=== PATIENT | male | born 1955 | race Two or more races ===

== ENCOUNTER 2020-02-07 21:57 | Inpatient (IN) | payer OTHER ==
[~2020-02-07] VITALS: Ht 188 cm; Wt 88.5 kg
--- NOTE | 2020-02-07 22:10 | NUR ---
PT CAME TO THE ED C/O PAIN ON THE L KNEE. REDNESS NOTED ON THE SITE. PT AAOX4, RR EVEN AND UNLABORED ON RA W NAD NOTED. PT CONNECTED TO THE MONITOR AND POX. AWAITING FOR MD RODRIGUEZ
--- NOTE | 2020-02-07 22:41 | NUR ---
Jadiel osorio in ED - 02/07/20 at 2242 by STEPHANY +SWELLING NTOED. PT ENDORSES L CHARCOAL FOOT.
--- NOTE | 2020-02-07 22:42 | NUR ---
MARCO ANTONIO JORDAN AT BEDSIDE
--- NOTE | 2020-02-07 22:42 | NUR ---
SWELLING NOTED. PT ENDORSES L CHARCOT FOOT.
--- NOTE | 2020-02-07 22:45 | NUR ---
BLOOD COLLECTED AND SENT TO LAB
[2020-02-07] MEDS ORDERED: PIPERACILLIN /TAZOBACTAM 3.375 G VIAL IV ONE (22:47)
[2020-02-07] MEDS ORDERED: VANCOMYCIN 1 GM VIAL ONE (22:47)
[2020-02-07] MEDS ORDERED: VANCOMYCIN 1 GM in IV D5W 250 ML IV ONE (23:00)
[2020-02-07] MEDS ORDERED: PIPERACILLIN /TAZOBACTAM 3.375 G in IV D5W 50 ML IV ONE (23:00)
[2020-02-07] MEDS ORDERED: MORPHINE SULFATE INJ 4 MG/ML DISP.SYRIN ONE (23:04)
[2020-02-07] MEDS ORDERED: ONDANSETRON HCL/PF 4 MG/2 ML VIAL ONE (23:04)
[2020-02-07 23:09] LABS: BASOPHILS % (AUTO) 0.2 % (0.0-2.0); EOSINOPHILS % (AUTO) 0.3 % (0.0-6.0); HEMATOCRIT 37 % (39-51); HEMOGLOBIN 11.6 g/dL (13.5-17.5); LYMPHOCYTES # (AUTO) 0.8 /CMM (0.8-4.8); MEAN CORPUSCULAR HGB CONC 32 g/dl (31.0-36.0); MEAN CORPUSCULAR VOLUME 75 fL (80-96); MONOCYTES # (AUTO) 1.1 /CMM (0.1-1.30); MONOCYTES % (AUTO) 5.4 % (2.0-12.0); NEUTROPHILS # (AUTO) 18.8 /CMM (1.8-8.9); NEUTROPHILS % (AUTO) 90.1 % (43.0-81.0); PLATELET COUNT (AUTO) 390 /CMM (150-450); RED BLOOD CELL COUNT(AUTO) 4.84 MIL/uL (4.5-6.0); WHITE BLOOD COUNT (AUTO) 20.8 K/uL (4.3-11.0)
[2020-02-07 23:18] LABS: CALCIUM, SERUM 9.3 mg/dL (8.5-10.1); CARBON DIOXIDE 30 mmol/L (21-32); CHLORIDE 91 mmol/L (98-107); CREATININE 0.9 mg/dL (0.6-1.3); GLUCOSE 161 mg/dL (74-106); POTASSIUM 3.1 mmol/L (3.5-5.1); SODIUM SERUM 129 mmol/L (136-145); UREA NITROGEN, BLOOD 18 mg/dL (7-18)
[2020-02-07] MEDS ORDERED: AMLO10TA7 PO (23:23)
[2020-02-07] MEDS ORDERED: DULO60CA45 PO (23:24)
[2020-02-07 23:25] LABS: ALANINE AMINOTRANSFERASE 18 U/L (12-78); ALBUMIN 2.2 g/dL (3.4-5.0); ALKALINE PHOSPHATASE 116 U/L (46-116); ASPARTATE AMINOTRANSFERASE 17 U/L (15-37); BILIRUBIN,DIRECT 0.2 mg/dL (0.0-0.2); BILIRUBIN,TOTAL 0.5 mg/dL (0.2-1.0); TOTAL PROTEIN, SERUM 7.7 g/dL (6.4-8.2)
[2020-02-07] MEDS ORDERED: MORPHINE SULFATE INJ 2 MG/ML DISP.SYRIN IV ONE (23:30)
[2020-02-07] MEDS ORDERED: ONDANSETRON HCL/PF 4 MG/2 ML VIAL IVP ONE (23:30)
--- NOTE | 2020-02-07 23:33 | NUR ---
ARSLAN () CONTACT [phone]
[2020-02-08] MEDS ORDERED: HYDR8TAB2 PO (00:04)
[2020-02-08] MEDS ORDERED: PANT40TA2 PO (00:05)
[2020-02-08] MEDS ORDERED: PREG75CA PO (00:06)
--- NOTE | 2020-02-08 00:06 | NUR ---
ULTRASOUND IN PROGRESS AT BEDSIDE
--- NOTE | 2020-02-08 00:20 | NUR ---
195/93 PT BP. PA MADE AWARE. ORDERS RECEIVED
[2020-02-08] MEDS ORDERED: IV NS 0.9% 1,000 ML BAG IV ONE (00:30)
--- NOTE | 2020-02-08 00:39 | NUR ---
BED ASSIGNMENT 316-2
[2020-02-08] MEDS ORDERED: AMLODIPINE BESYLATE 5 MG TABLET ONE (00:45)
[2020-02-08] MEDS ORDERED: AMLODIPINE BESYLATE 5 MG TABLET PO ONE (01:00)
[2020-02-08] MEDS ORDERED: MAG HYDROX/AL HYDROX/SIMETH 30 ML UDC PO PRN (01:00)
[2020-02-08] MEDS ORDERED: Z GUARD REMEDY 2 OZ OINT TP PRN (01:00)
[2020-02-08] MEDS ORDERED: ONDANSETRON HCL/PF 4 MG/2 ML VIAL IVP PRN (01:00)
[2020-02-08] MEDS ORDERED: ZOLPIDEM TARTRATE 5 MG TABLET PO PRN (01:00)
[2020-02-08] MEDS ORDERED: Potassium Chloride 20 MEQ in IV NS 0.9% 1,000 ML IV SCH (01:00)
[2020-02-08] MEDS ORDERED: MAGNESIUM HYDROXIDE 30 ML UDC PO PRN (01:00)
--- NOTE | 2020-02-08 01:30 | NUR ---
PAGED ORTHOFOR ALAN MAXWELL ZIPPER TRIMMER HAND
--- NOTE | 2020-02-08 01:45 | NUR ---
PAGED DR. MOTTA FOR ALAN COLD TYPE ARTIST
[2020-02-08] MEDS ORDERED: CLONIDINE HCL 0.1 MG TABLET ONE (02:04)
[2020-02-08] MEDS ORDERED: CLONIDINE HCL 0.1 MG TABLET PO PRN (02:30)
[2020-02-08 03:00] VITALS: BP 174/94
--- NOTE | 2020-02-08 03:00 | NUR ---
TELE/RN ADMITTING NOTES: PATIENT ARRIVED AT THE UNIT VIA [facility]. ACCOMPANIED BY ER STAFF. REPORT GIVEN BY Malika CHUA. PATIENT IS A/OX2. VERBALLY RESPONSIVE BUT DOESN'T ANSWER CERTAIN QUESTIONS. PT IS COMPLAINING OF PAIN ON HIS LEFT LEG WHEN BEING TRANSFERRED FROM [facility] TO THE BED. IV SITE PRESENT ON THE RIGHT AC #20G SL. INTACT AND PATENT. PATIENT DOESN'T WANT TO BE MOVED DUE TO PAIN AND REFUSES SKIN ASSESSMENT. CELLULITIS PRESENT ON THE LEFT LOWER EXTREMITY. PHOTO TAKEN AND DOCUMENTED ON THE CHART. ON ROOM AIR, NO SOB NOTED. BREATHING EVEN AND UNLABORED. ORIENTED TO STAFF AND UNIT. BELONGINGS LIST CHECKED. SAFETY MEASURE INITIATED. BED IN LOW LOCKED POSITION. SR UP X2. CALL LIGHT WITHIN REACH. WILL CONTINUE TO MONITOR.
--- NOTE | 2020-02-08 03:10 | NUR ---
PT TRANSFERRED TO ROOM IN STABE CONDITION
--- NOTE | 2020-02-08 03:20 | NUR ---
TELE/RN NOTES: ALAN MAXWELL DIRECTOR OF DISTRICT OFFICE SAW PATIENT, ORDERED MORPHINE 4MG IV PUSH ONE TIME, AND TO PLACE THE PATIENT TO TELE FOR NOW DUE TO INCREASED HEART RATE. ORDERS NOTED AND CARRIED OUT. WILL CONTINUE TO MONITOR.
--- NOTE | 2020-02-08 03:26 | NUR ---
TELE/RN NOTES: PATIENT SCREAMING DUE TO PAIN. RATES HIS PAIN LEVEL TO A 10. REFUSES TO BE MOVED AND REFUSES FURTHER SKIN ASSESSMENT, ADMINISTERED MORPHINE IV PUSH 4MG ONE TIME. TOLERATED WELL. BP:174/94 HR: 106. WILL KEEP MONITORING PT ACCORDINGLY.
[2020-02-08] MEDS ORDERED: MORPHINE SULFATE INJ 4 MG/ML DISP.SYRIN IV ONE (03:30)
[2020-02-08] MEDS ORDERED: PIPERACILLIN /TAZOBACTAM 3.375 G VIAL IV ONE (03:46)
[2020-02-08 04:00] VITALS: BP 174/94
[2020-02-08] MEDS ORDERED: ZOSYN IVPB 3.375 G in IV D5W 50ml IV ONE (05:00)
[2020-02-08] MEDS ORDERED: IV PREMIX NS +20MEQ KCL 1 L IV ONE (05:07)
[2020-02-08] MEDS: Potassium Chloride 20 MEQ in IV NS 0.9% 1,000 ML IV PRN (05:16)
--- NOTE | 2020-02-08 06:52 | NUR ---
TELE/RN NOTES: PT IN BED SLEEPING. NO C/O PAIN OR DISCOMFORT. NO SIGNIFICANT CHANGES IN CONDITION. NO SOB NOTED. BREATHING EVEN AND UNLABORED. TELE MONITOR READING OF SR 98. SAFETY MEASURES KEPT IN PLACE. BED IN LOW, LOCKED POSITION. IV NS RUNNING AT 80ML/HR. INFUSING WELL. WILL ENDORSE TO DAY SHIFT FOR HADLEY.
[2020-02-08] MEDS: PANTOPRAZOLE 40 MG TABLET.DR PO SCH ×2 (07:30→07:47)
--- NOTE | 2020-02-08 07:37 | NUR ---
TELE/RN OPENING NOTES RECEIVED PATIENT LYING IN BED COMFORTABLY. NO C/O PAIN OR DISCOMFORT. NO APPARENT DISTRESS NOTED. TELE MONITOR IN PLACED SINUS RHYTHM 98. NO SOB NOTED. BREATHING EVEN AND UNLABORED. SAFETY MEASURES KEPT IN PLACE. BED IN LOW, LOCKED POSITION. IV NS RUNNING AT 80ML/HR. INFUSING WELL. WILL CONTINUE TO MONITOR.
[2020-02-08] MEDS ORDERED: FEE PK DOSING 1 MIN EA MC ONE (07:53)
[2020-02-08 08:00] VITALS: BP 159/81
[2020-02-08 09:02] LABS: PHOSPHORUS 3.7 mg/dL (2.5-4.9)
[2020-02-08 09:05] LABS: IRON, SERUM 10 ug/dl (50-175); TOTAL IRON BINDING CAPACITY 163 ug/dl (250-450)
[2020-02-08] MEDS: VALSARTAN 80 MG TABLET PO SCH (09:16)
[2020-02-08] MEDS: POTASSIUM CHLORIDE 20 MEQ TAB.PRT.SR PO SCH ×3 (09:17→11:12)
[2020-02-08] MEDS: HYDROCODONE/APAP 5/325MG 1 EACH TABLET PO PRN ×2 (09:18→14:19)
[2020-02-08 09:42] LABS: CHOLESTEROL 117 mg/dL (<200); FERRITIN 547 ng/mL (8-388); HDL CHOLESTEROL 19 mg/dL (40-60); LDL 84 mg/dL (0-99); THYROID STIMULATING HORMONE 0.878 uIU/mL (0.358-3.74); TRIGLYCERIDES 85 mg/dL (30-150)
[2020-02-08] MEDS ORDERED: IV NS 0.9% 1,000 ML IV PRN (10:00)
--- NOTE | 2020-02-08 10:01 | NUR ---
TELE/RN NOTES PATIENT IS OUT IN THE UNIT, DEHAIRING MACHINE TENDER BY FRAME STYLIST.
--- NOTE | 2020-02-08 10:29 | NUR ---
TELE/RN NOTES PATIENT CAME BACK IN THE UNIT FROM RADIOLOGY DEPARTMENT.
[2020-02-08] MEDS: VANCOMYCIN 1.25 GM in IV D5W 250 ML IV SCH ×2 (11:05→22:06)
[2020-02-08] MEDS: HYDROMORPHONE INJ 2 MG/ML DISP.SYRIN IV PRN ×3 (11:05→23:37)
[2020-02-08 11:34] LABS: CALCIUM, SERUM 9.1 mg/dL (8.5-10.1)
[2020-02-08 11:51] LABS: URIC ACID 5.1 mg/dL (2.6-7.2)
[2020-02-08] MEDS: PIPERACILLIN /TAZOBACTAM 3.375 G in IV D5W 50 ML IV SCH ×2 (13:30→17:15)
[2020-02-08 16:00] VITALS: BP 136/76
[2020-02-08 16:47] LABS: URINE SODIUM, RANDOM 9 mmol/l (40-220)
[2020-02-08 17:47] LABS: OSMOLALITY,URINE 309 mOS/kg (340-1090)
--- NOTE | 2020-02-08 18:52 | NUR ---
TELE/RN CLOSING NOTES PATIENT LYING ON THE BED COMFORTABLY. PATIENT IS ALERT AND ORIENTED X3. PATIENT IN NO APPARENT DISTRESS NOTED. PATIENT WITH NO COMPLAINED OF PAIN AT THIS TIME. TELE MONITOR IN PLACE SR 88. IV IV FLUID KCL NS 0.9% 1L AT 80ML/HR ON AND INFUSING WELL. IV LINE AT RIGHT AC 20 G NO REDNESS, NO INFILTRATION NOTED. SEEN AND EXAMINED BY MD WITH ORDERS MADE AND CARRIED OUT. ALL DUE MEDS WAS GIVEN. KEPT PATIENT CLEAN AND DRY THE WHOLE SHIFT. ROUTINELY CHECKED EVERY 2 HOUR. BED IN LOWEST POSITION, SIDE RAILS UP X2. WILL ENDORSED TO BAGGAGEMAN FOR HADLEY.
--- NOTE | 2020-02-08 19:22 | NUR ---
RN OPENING NOTES: RECEIVED PT ON ROOM AIR AND IS TOLERATING WELL. NO SOB NOTED. PT ASLEEP AT THIS TIME BUT IS EASILY AROUSABLE TO TOUCH. PT IS A/OX3. PT ON TELE BOX AND READING SHOWS SR AT THIS TIME. PT HAS IV ON R AC #20G AND IS BEING INFUSED WITH KCL NS @80ML/HR. BED ALARM ACTIVATED. BED KEPT IN LOW , LOCKED POSITION, AND SIDE RAILS X 3 UP. WILL CONTINUE TO MONITOR PT.
--- NOTE | 2020-02-08 19:33 | NUR ---
RN NOTES: PT COMPLAINING OF 8/10 L KNEE THROBBING PAIN. PT WAS ADMINISTERED DILAUDID 2MG IV. WILL CONTINUE TO MONITOR PT.
[2020-02-08 20:00] VITALS: BP 148/78
[2020-02-08] MEDS: AMLODIPINE BESYLATE 10 MG TABLET PO SCH (21:37)
--- NOTE | 2020-02-08 23:40 | NUR ---
RN NOTES: PT STILL COMPLAINING OF LEFT LEG AND FOOT THROBBING PAIN. PT WAS ADMINISTERED DILAUDID 2MG IV. WILL CONTINUE TO MONITOR.
[2020-02-09] VITALS: BP 159/95
[2020-02-09] MEDS: PIPERACILLIN /TAZOBACTAM 3.375 G in IV D5W 50 ML IV SCH ×4 (00:04→18:09)
[2020-02-09] MEDS: HYDROCODONE/APAP 5/325MG 1 EACH TABLET PO PRN ×5 (01:40→20:30)
--- NOTE | 2020-02-09 01:42 | NUR ---
MS RN NOTES: PT COMPLAINING OF 7/10 L KNEE, LEG, FOOT CONSTANT/THROBBING PAIN. PT WAS ADMINISTERED NORCO 5 PO. WILL CONTINUE TO MONITOR.
[2020-02-09 04:00] VITALS: BP 145/91
[2020-02-09] MEDS: HYDROMORPHONE INJ 2 MG/ML DISP.SYRIN IV PRN ×5 (04:19→21:38)
--- NOTE | 2020-02-09 04:24 | NUR ---
RN NOTES: PT COMPLAINING OF 8/10 L KNEE THROBBING PAIN. PT WAS ADMINISTERED DILAUDID 2MG IV. WILL CONTINUE TO MONITOR PT.
--- NOTE | 2020-02-09 05:43 | NUR ---
RN NOTES: PT WAS CLEANED AND PT STARTED SCREAMING THAT HIS LEFT KNEE WAS PAINFUL AND 10/10 PAIN. PT WAS ADMINISTERED NORCO 5 PO. WILL CONTINUE TO MONITOR.
--- NOTE | 2020-02-09 06:22 | NUR ---
MS LIZETH CLOSING NOTES: ALL NEEDS WERE ATTENDED AND ANTICIPATED FOR. PT ON ROOM AIR AND TOLERATING WELL. NO SOB NOTED. NO S/S OF DISTRESS. PT HAS IV ON R AC AND IS BEING INFUSED WITH IV NS AT 75ML/HR. PT TURNED AND REPOSITIONED Q 2HRS. PT'S LEFT KNEE CLEANSED WITH NS AND COVERED WITH DRY GAUZE FOR NOW. L LEG ELEVATED WITH PILLOW WELL. BED KEPT IN LOW, LOCKED POSITION, AND SIDE RAILS X 2UP. WILL ENDORSE TO AM NURSE FOR HADLEY. Addendum: 02/09/20 at 0636 by BRAYAN BLACK RN PT ON TELE BOX AND READING SHOWS SR WITH OCCASIONAL PVCS.
--- NOTE | 2020-02-09 07:19 | NUR ---
RN NOTES: ENDORSED TO LIZETH ALONSO, FOR HADLEY.
--- NOTE | 2020-02-09 07:20 | NUR ---
ms rn received on bed awake alert oriented x4,came in w/ infected left knee surgery, not in any form of distress,site oozing w/ pus, dressing intact.denies pain at this time.all needs attended.
[2020-02-09 07:26] LABS: BASOPHILS # (AUTO) 0.1 /CMM (0.0-0.2); BASOPHILS % (AUTO) 0.4 % (0.0-2.0); EOSINOPHILS % (AUTO) 0.9 % (0.0-6.0); HEMATOCRIT 34 % (39-51); HEMOGLOBIN 10.6 g/dL (13.5-17.5); LYMPHOCYTES # (AUTO) 1.1 /CMM (0.8-4.8); LYMPHOCYTES % (AUTO) 8.3 % (20.0-44.0); MEAN CORPUSCULAR HGB CONC 31 g/dl (31.0-36.0); MEAN CORPUSCULAR VOLUME 77 fL (80-96); MONOCYTES # (AUTO) 0.9 /CMM (0.1-1.30); MONOCYTES % (AUTO) 6.6 % (2.0-12.0); NEUTROPHILS # (AUTO) 11.3 /CMM (1.8-8.9); NEUTROPHILS % (AUTO) 83.8 % (43.0-81.0); PLATELET COUNT (AUTO) 412 /CMM (150-450); RED BLOOD CELL COUNT(AUTO) 4.44 MIL/uL (4.5-6.0); WHITE BLOOD COUNT (AUTO) 13.5 K/uL (4.3-11.0)
[2020-02-09] MEDS: PANTOPRAZOLE 40 MG TABLET.DR PO SCH ×2 (07:30→09:27)
[2020-02-09 07:43] LABS: BILIRUBIN,TOTAL 0.5 mg/dL (0.2-1.0); CALCIUM, SERUM 9.1 mg/dL (8.5-10.1); CREATININE 0.9 mg/dL (0.6-1.3); MAGNESIUM 2.1 mg/dL (1.8-2.4); PHOSPHORUS 3.5 mg/dL (2.5-4.9); POTASSIUM 3.3 mmol/L (3.5-5.1); TOTAL PROTEIN, SERUM 6.9 g/dL (6.4-8.2)
[2020-02-09 08:00] VITALS: BP 134/73
[2020-02-09 09:05] LABS: ALBUMIN 1.8 g/dL (3.4-5.0)
[2020-02-09] MEDS: VALSARTAN 80 MG TABLET PO SCH (09:27)
--- NOTE | 2020-02-09 09:30 | NUR ---
ms rn due meds given, tolerated well.
--- NOTE | 2020-02-09 12:00 | NUR ---
ms maru was seen by melody august/ orders made and carried out.
[2020-02-09] MEDS: VANCOMYCIN 1.25 GM in IV D5W 250 ML IV SCH ×2 (12:39→23:35)
[2020-02-09 16:00] VITALS: BP 147/74
--- NOTE | 2020-02-09 17:00 | NUR ---
ms rn patient has been receiving pain meds the whole day.
[2020-02-09] MEDS: SOD FERRIC GLUC 125 MG in IV NS 0.9% 100 ML IV SCH (17:39)
--- NOTE | 2020-02-09 19:00 | NUR ---
ms rn on bed, all needs attended.
[2020-02-09 20:00] VITALS: BP 135/73
[2020-02-09] MEDS: MUPIROCIN OINT 2% 22 GM TUBE SCH (20:59)
--- NOTE | 2020-02-09 21:44 | NUR ---
shape hand notes pt complaining of generalized pain even norco tablet given an hour ago. He requested to have his pain shot instead. Dilaudid 2 mg administered by another nurse as ordered. kept him comfortable at all times. will continue to monitor.
[2020-02-09] MEDS: AMLODIPINE BESYLATE 10 MG TABLET PO SCH (22:32)
[2020-02-10] MEDS: PIPERACILLIN /TAZOBACTAM 3.375 G in IV D5W 50 ML IV SCH ×4 (01:39→17:01)
[2020-02-10] MEDS: HYDROMORPHONE INJ 2 MG/ML DISP.SYRIN IV PRN ×6 (01:40→22:45)
--- NOTE | 2020-02-10 01:42 | NUR ---
PROFESSOR OF ANTHROPOLOGY NOTES C/O LEFT LOWER LEG DILAUDID GIVEN ESTELLA IVP ORDERED BY ANOTHER NURSE ORDERED. DUE ZOSYN GIVEN WELL. WILL CONTINUE MONITORING.
--- NOTE | 2020-02-10 06:31 | NUR ---
cartoon artist closing notes pt resting at this time after pain meds given and morning care done. all due meds given and all needs met. stable loulou the night . I just noticed that the patient like wants his pain meds like a routine meds even we noticed that his comfortable resting. he requested to have a pain mgt consult for his on and off pain. He's NPO since 12 MN for possible surgery. IVF still infusing on his right wrist. no signs of any acute distress noted. kept him warm and comfortable at all times. place call light at reach. will endorse to am nurse for continuity of care.
[2020-02-10 07:05] LABS: CALCIUM, SERUM 8.7 mg/dL (8.5-10.1); CREATININE 0.7 mg/dL (0.6-1.3)
--- NOTE | 2020-02-10 07:20 | NUR ---
RN NOTES Received pt resting in bed in moderate high back rest. A/O X3. no signs of any acute distress noted at this time. IV fluids on RAC #20 with NS running @75ml/hr, patent and intact. safety measures in place, bed in lowest locked position with side rails up x2. call light within reach. will continue to monitor.
[2020-02-10] MEDS: PANTOPRAZOLE 40 MG TABLET.DR PO SCH ×2 (07:30)
[2020-02-10 07:58] VITALS: BP 168/80
[2020-02-10] MEDS: VALSARTAN 80 MG TABLET PO SCH (08:02)
[2020-02-10] MEDS: HYDROCODONE/APAP 5/325MG 1 EACH TABLET PO PRN (08:02)
--- NOTE | 2020-02-10 09:20 | NUR ---
WOUND CARE CONSULT: REVIEWED ADMISSION DOCUMENTATION INCLUDING PHOTOS AND SPOKE WITH RN. PT FOLLOWED BY ORTHO FOR KNEE. PER NURSING STAFF, PT IS INDEPENDENT WITH BED MOBILITY AND CONTINENT. WILL SEE PRN.
--- NOTE | 2020-02-10 09:54 | NUR ---
WOUND CARE CONSULT: PT SEEN FOR SKIN ASSESSMENT AND NOTED TO HAVE PURULENT DRAINAGE FROM LEFT KNEE WOUND, PRESENT ON ADMISSION. RECOMMENDATIONS MADE FOR WOUND CARE AND SKIN PROTECTION. DISCUSSED WITH NURSING STAFF. WILL SEE PRValencia. IN AGREEMENT WITH PLAN OF CARE. PT IS ABLE TO TURN AND REPOSITION IN BED AND IS MOSTLY CONTINENT. MD IN AGREEMENT WITH PLAN OF CARE. RECOMMEND SURGICAL FOLLOW UP. Addendum: 02/10/20 at 0955 by WESLEY ABERNATHY WNDNU Amended: Links added.
[2020-02-10] MEDS: POTASSIUM CHLORIDE 20 MEQ TAB.PRT.SR PO SCH ×3 (09:56→12:01)
[2020-02-10] MEDS ORDERED: FENTANYL TD PATCH (50 MCG/HR) 50 MCG/HR PATCH.TD72 TD SCH (10:00)
[2020-02-10] MEDS ORDERED: FENTANYL PATCH (100 MCG/HR) 100 MCG/HR PATCH.TD72 TD SCH (10:00)
[2020-02-10] MEDS: MUPIROCIN OINT 2% 22 GM TUBE SCH ×2 (10:07→21:40)
[2020-02-10 10:23] LABS: BASOPHILS % (AUTO) 0.2 % (0.0-2.0); EOSINOPHILS % (AUTO) 1.1 % (0.0-6.0); HEMATOCRIT 35 % (39-51); HEMOGLOBIN 10.8 g/dL (13.5-17.5); LYMPHOCYTES # (AUTO) 0.8 /CMM (0.8-4.8); LYMPHOCYTES % (AUTO) 6.6 % (20.0-44.0); MEAN CORPUSCULAR HGB CONC 31 g/dl (31.0-36.0); MEAN CORPUSCULAR VOLUME 77 fL (80-96); MONOCYTES # (AUTO) 0.6 /CMM (0.1-1.30); MONOCYTES % (AUTO) 5.1 % (2.0-12.0); PLATELET COUNT (AUTO) 508 /CMM (150-450); RED BLOOD CELL COUNT(AUTO) 4.52 MIL/uL (4.5-6.0); WHITE BLOOD COUNT (AUTO) 11.5 K/uL (4.3-11.0)
[2020-02-10] MEDS: VANCOMYCIN 1.25 GM in IV D5W 250 ML IV SCH ×2 (11:01→22:07)
[2020-02-10] MEDS: DAKINS QUARTER STRENGTH (0.125%) 480 ML BOTTLE TOP SCH (11:55)
[2020-02-10] MEDS: SOD FERRIC GLUC 125 MG in IV NS 0.9% 100 ML IV SCH (14:24)
[2020-02-10] MEDS: Potassium Chloride 20 MEQ in IV NS 0.9% 1,000 ML IV PRN (14:37)
[2020-02-10 16:19] VITALS: BP 173/81
[2020-02-10] MEDS: ACETAMINOPHEN 325 MG TABLET PO PRN (16:55)
[2020-02-10] MEDS ORDERED: LOSARTAN POTASSIUM 25 MG TABLET PO SCH (18:00)
--- NOTE | 2020-02-10 18:00 | NUR ---
RN NOTES PATIENT BP IS ELEVATED 173/81, MALIKA RAINES NP MADE AWARE AND ORDERED METOPROLOL 25 MG, WILL CONTINUE TO MONITOR AND WILL ENDORSE TO SPACE PHYSICIST NURSE FOR HADLEY.
[2020-02-10] MEDS: METOPROLOL TARTRATE 25 MG TABLET PO SCH ×2 (19:05→20:55)
--- NOTE | 2020-02-10 19:27 | NUR ---
RN NOTES Patient resting in bed in moderate high back rest. A/O X3. IV fluids on R hand, patent and intact. safety measures in place, bed in lowest locked position with side rails up x2. call light within reach. will endorse to shift commander nurse for HADLEY.
[2020-02-10 20:00] VITALS: BP 160/83
--- NOTE | 2020-02-10 20:07 | NUR ---
MS RN NOTES PATIENT RECEIVED RESTING IN BED A/O X 3, STABLE ON RA WITH BREATHING EVEN AND UNLABORED, NO SOB NOTED. NO SIGNS OF ACUTE DISTRESS. NO COMPLAINTS OF PAIN OR DISCOMFORT. IV LOCATED ON R WRIST AND R HAND #22 RUNNING KCL WITH NS @ 80 ML/HR. SAFETY PRECAUTIONS IN PLACE WITH BED IN LOWEST POSITION, CALL LIGHT WITHIN REACH, BREAKS ON, SIDE RAILS UP. WILL CONTINUE TO MONITOR THROUGHOUT THE NIGHT.
--- NOTE | 2020-02-10 20:55 | NUR ---
MS RN NOTES DID NOT ADMINISTER METOPROLOL 25 MG SCHEDULED FOR 2100 BECAUSE IT WAS ALREADY ADMINISTERED PREVIOUSLY BY AM SHIFT AT 1905.
[2020-02-10] MEDS: AMLODIPINE BESYLATE 10 MG TABLET PO SCH (21:40)
[2020-02-11] MEDS: PIPERACILLIN /TAZOBACTAM 3.375 G in IV D5W 50 ML IV SCH ×4 (00:13→17:08)
[2020-02-11] MEDS: HYDROMORPHONE INJ 2 MG/ML DISP.SYRIN IV PRN ×5 (02:45→20:11)
[2020-02-11 06:16] LABS: BASOPHILS % (AUTO) 0.3 % (0.0-2.0); EOSINOPHILS % (AUTO) 0.2 % (0.0-6.0); HEMATOCRIT 34 % (39-51); HEMOGLOBIN 10.7 g/dL (13.5-17.5); LYMPHOCYTES # (AUTO) 0.8 /CMM (0.8-4.8); LYMPHOCYTES % (AUTO) 8.2 % (20.0-44.0); MEAN CORPUSCULAR HGB CONC 32 g/dl (31.0-36.0); MEAN CORPUSCULAR VOLUME 75 fL (80-96); MONOCYTES # (AUTO) 0.5 /CMM (0.1-1.30); MONOCYTES % (AUTO) 5.1 % (2.0-12.0); NEUTROPHILS # (AUTO) 8.5 /CMM (1.8-8.9); NEUTROPHILS % (AUTO) 86.2 % (43.0-81.0); PLATELET COUNT (AUTO) 539 /CMM (150-450); RED BLOOD CELL COUNT(AUTO) 4.46 MIL/uL (4.5-6.0); WHITE BLOOD COUNT (AUTO) 9.9 K/uL (4.3-11.0)
--- NOTE | 2020-02-11 06:38 | NUR ---
MS RN CLOSING NOTES PATIENT RESTING IN BED A/O X 3, STABLE ON RA WITH BREATHING EVEN AND UNLABORED, NO SOB NOTED. NO SIGNS OF ACUTE DISTRESS. NO COMPLAINTS OF PAIN OR DISCOMFORT. IV LOCATED ON R WRIST AND R HAND #22 RUNNING KCL WITH NS @ 80 ML/HR. SAFETY PRECAUTIONS IN PLACE WITH BED IN LOWEST POSITION, CALL LIGHT WITHIN REACH, BREAKS ON, SIDE RAILS UP. ALL NEEDS ATTENDED TO. WILL ENDORSE TO ONCOMING SHIFT ABOUT HADLEY.
[2020-02-11 06:39] LABS: CALCIUM, SERUM 8.4 mg/dL (8.5-10.1); CREATININE 0.8 mg/dL (0.6-1.3); MAGNESIUM 1.9 mg/dL (1.8-2.4); PHOSPHORUS 3.3 mg/dL (2.5-4.9)
[2020-02-11] MEDS: PANTOPRAZOLE 40 MG TABLET.DR PO SCH (07:31)
--- NOTE | 2020-02-11 07:42 | NUR ---
RN NOTES Received Patient resting in bed in moderate high back rest. A/O X3. no signs of distress noted at this time. IV fluids on R hand and right wrist, patent and intact. safety measures in place, bed in lowest locked position with side rails up x2. call light within reach. will continue to monitor.
[2020-02-11 08:00] VITALS: BP 184/78
[2020-02-11] MEDS: METOPROLOL TARTRATE 25 MG TABLET PO SCH ×2 (08:14→20:09)
[2020-02-11] MEDS: MUPIROCIN OINT 2% 22 GM TUBE SCH ×2 (08:14→20:19)
[2020-02-11] MEDS: VALSARTAN 80 MG TABLET PO SCH (08:15)
[2020-02-11] MEDS: DAKINS QUARTER STRENGTH (0.125%) 480 ML BOTTLE TOP SCH (08:16)
[2020-02-11] MEDS: Potassium Chloride 20 MEQ in IV NS 0.9% 1,000 ML IV PRN (09:09)
[2020-02-11] MEDS ORDERED: POTASSIUM CHLORIDE 20 MEQ TAB.PRT.SR PO ONE (10:00)
[2020-02-11] MEDS: VANCOMYCIN 1.25 GM in IV D5W 250 ML IV SCH ×2 (11:38→23:51)
[2020-02-11] MEDS: SOD FERRIC GLUC 125 MG in IV NS 0.9% 100 ML IV SCH (13:51)
[2020-02-11 16:00] VITALS: BP 181/77
[2020-02-11] MEDS: ACETAMINOPHEN 325 MG TABLET PO PRN (17:08)
--- NOTE | 2020-02-11 17:30 | NUR ---
RN NOTES PATIENT BP IS ELEVATED 181/77, I ASKED REGARDING PAIN, PER PAIN IT'S TOLERABLE. NO COMPLAIN OF HEADACHE OR ANY DISCOMFORT. MALIKA RAINES NP MADE AWARE WITH NO NEW ORDERS AT THIS TIME. WILL CONTINUE TO MONITOR.
--- NOTE | 2020-02-11 18:34 | NUR ---
RN NOTES Patient resting in bed in moderate high back rest. A/O X3. no signs of distress noted throughout the shift. IV fluids on R hand and right wrist, patent and intact. safety measures in place, bed in lowest locked position with side rails up x2. call light within reach. will endorse to night time babysitter nurse for marlon.
--- NOTE | 2020-02-11 19:30 | NUR ---
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 PATIENT IN BED. A/OX3. TOLERATING ROOM AIR. RESPIRATIONS ARE EVEN AND UNLABORED. NO S/S SOB NOTED. STATES PAIN IS 10/10. INFORMED WILL PROVIDE PAIN MEDICATION. IN NO APPARENT DISTRESS AT THIS TIME. IV ACCESS IN RIGHT HAND AND RIGHT WRIST RUNNING NS WITH KCL@80ML/HR. BED IS LOW AND LOCKED, HOB ELEVATED IN SEMI FOWLERS, SIDE RIALS UP X2, BED ALARM ON, EXTREMITIES OFF LOADED. CALL LIGHT WITHIN REACH. WILL CONTINUE TO MONITOR.
[2020-02-11 20:00] VITALS: BP_SYST 180; BP_DIAS 90; BP_DIAS 96
--- NOTE | 2020-02-11 20:19 | NUR ---
MS RN NOTE ADMINISTERED PRN MORPHINE 2MG FOR PAIN 10/10 IN LEFT LOWER EXTREMITY. WILL CONTINUE TO MONITOR.
[2020-02-11] MEDS: AMLODIPINE BESYLATE 10 MG TABLET PO SCH (22:31)
[2020-02-12] MEDS: Potassium Chloride 20 MEQ in IV NS 0.9% 1,000 ML IV PRN (01:31)
[2020-02-12] MEDS: PIPERACILLIN /TAZOBACTAM 3.375 G in IV D5W 50 ML IV SCH ×3 (01:32→12:25)
[2020-02-12] MEDS: HYDROMORPHONE INJ 2 MG/ML DISP.SYRIN IV PRN ×3 (01:32→10:46)
--- NOTE | 2020-02-12 01:34 | NUR ---
MS RN NOTE ADMINISTERED PRN DILAUDID 2MG FOR PAIN 10/10 IN LLE.WILL CONTINUE TO MONITOR.
[2020-02-12] MEDS: HYDROCODONE/APAP 5/325MG 1 EACH TABLET PO PRN ×2 (04:37→09:07)
--- NOTE | 2020-02-12 04:38 | NUR ---
MS RN NOTE ADMINISTERED PRN NORCO 5/325 FOR PAIN 05/12 ON LLE WILL CONTINUE TO MONITOR.
--- NOTE | 2020-02-12 06:00 | NUR ---
MS RN NOTE ADMINISTERED PRN DILAUDID 2MG FOR PAIN 07/13 IN LLE. WILL CONTINUE TO MONITOR.
--- NOTE | 2020-02-12 06:38 | NUR ---
MS RN CLOSING NOTE REMAINS ON ISOLATION FOR MRSA NARES. PATIENT IN BED. A/OX3. TOLERATING ROOM AIR. RESPIRATIONS ARE EVEN AND UNLABORED. NO SOB NOTED. PAIN MANAGED WITH NORCO 5 AND DILAUDID 2MG THROUGHOUT SHIFT. INFORMED WILL PROVIDE PAIN MEDICATION. IN NO APPARENT DISTRESS AT THIS TIME. IV ACCESS MAINTAINED IN RIGHT WRIST #22 RUNNING NS WITH KCL@80ML/HR. BED REMAINS LOW AND LOCKED, HOB ELEVATED IN SEMI FOWLERS, SIDE RIALS UP X2, BED ALARM ON, EXTREMITIES OFF LOADED. CALL LIGHT WITHIN REACH. WILL ENDORSE TO NEXT SHIFT.
[2020-02-12 06:42] LABS: BASOPHILS % (AUTO) 0.3 % (0.0-2.0); HEMATOCRIT 35 % (39-51); HEMOGLOBIN 10.8 g/dL (13.5-17.5); LYMPHOCYTES # (AUTO) 0.9 /CMM (0.8-4.8); LYMPHOCYTES % (AUTO) 7.9 % (20.0-44.0); MEAN CORPUSCULAR HGB CONC 31 g/dl (31.0-36.0); MEAN CORPUSCULAR VOLUME 75 fL (80-96); MONOCYTES # (AUTO) 0.7 /CMM (0.1-1.30); MONOCYTES % (AUTO) 5.7 % (2.0-12.0); NEUTROPHILS % (AUTO) 85.1 % (43.0-81.0); PLATELET COUNT (AUTO) 551 /CMM (150-450); RED BLOOD CELL COUNT(AUTO) 4.59 MIL/uL (4.5-6.0); WHITE BLOOD COUNT (AUTO) 11.8 K/uL (4.3-11.0)
[2020-02-12 06:55] LABS: CALCIUM, SERUM 8.9 mg/dL (8.5-10.1); CREATININE 0.9 mg/dL (0.6-1.3); PHOSPHORUS 3.7 mg/dL (2.5-4.9); POTASSIUM 3.7 mmol/L (3.5-5.1)
--- NOTE | 2020-02-12 07:57 | NUR ---
MS RN OPENING NOTE PATIENT IN BED RESTING COMFORTABLY. PATIENT IN NO ACUTE DISTRESS. NO SOB NOTED. PATIENT BREATHING IS EVEN AND UNLABORED. PATIENT STATES 8/10 LEFT KNEE PAIN. INSTRUCTED TO USE CALL LIGHT FOR ASSISTANCE. PATIENT BED ALARM IS ON. SAFETY PRECAUTIONS IN PLACE. PATIENT BED IS LOCKED AND IN LOWEST POSITION. CALL LIGHT WITHIN REACH. WILL CONTINUE TO MONITOR.
[2020-02-12 08:00] VITALS: BP 178/82
[2020-02-12] MEDS: PANTOPRAZOLE 40 MG TABLET.DR PO SCH (08:15)
[2020-02-12] MEDS: METOPROLOL TARTRATE 25 MG TABLET PO SCH (08:16)
[2020-02-12] MEDS: VALSARTAN 80 MG TABLET PO SCH (08:17)
[2020-02-12] MEDS: MUPIROCIN OINT 2% 22 GM TUBE SCH (08:19)
[2020-02-12] MEDS: DAKINS QUARTER STRENGTH (0.125%) 480 ML BOTTLE TOP SCH (08:19)
--- NOTE | 2020-02-12 10:42 | NUR ---
MS STANLEY NOTE CALLED TO PHARMACY ABOUT VANCO TROUGH LEVEL 20 FROM LAST NIGHT, PER PHARMACY HOLD VANCOMYCIN 1100 DOSE AND WILL REDOSE. Addendum: 02/12/20 at 1044 by BAILEY SAN RN MS STANLEY NOTE CALLED TO PHARMACY ABOUT VANCO TROUGH LEVEL 20 FROM LAST NIGHT, PER PHARMACY HOLD VANCOMYCIN 1.25GM 1100 DOSE AND WILL REDOSE.
[2020-02-12] MEDS: hydrALAZINE HCL 50 MG TABLET PO SCH ×2 (10:46→12:33)
[2020-02-12] MEDS ORDERED: VANCOMYCIN 1 GM in IV D5W 250 ML IV SCH (11:00)
--- NOTE | 2020-02-12 12:04 | NUR ---
MS RN NOTE AWAITING VANCOMYCIN BAG SCHEDULED 1100 AND ZOSYN BAG SCHEDULED 1200, PER SIMI FROM PHARMACY WILL F/U.
[2020-02-12 12:33] VITALS: BP 162/79
--- NOTE | 2020-02-12 15:30 | NUR ---
MS RN NOTE SKIN ASSESSED, NO NEW SKIN BREAKDOWN NOTED.
--- NOTE | 2020-02-12 16:20 | NUR ---
MS PRACTICE PERFORMANCE MANAGER NOTE PATIENT MEDICALLY STABLE FOR DISCHARGE. PATIENT IN NO ACUTE DISTRESS. NO SOB NOTED. PATIENT BREATHING IS EVEN AND UNLABORED. PATIENT KEPT CLEAN, DRY AND COMFORTABLE THROUGHOUT SHIFT. PATIENT IV PATENT AND IN PLACE. EDUCATED ON DC INSTRUCTIONS. PATIENT VERBALIZED UNDERSTANDING. PATIENT SIGNED BELONGINGS LIST, HAS BELONGINGS WITH HIM. PATIENT NEEDS AND CONCERNS ADDRESSED. WOUND CARE PROVIDED ORDERED. PATIENT REPORT GIVEN TO CARMELITA STANLEY AT [facility]. REPORT GIVEN TO TWO LAYER OFF. PATIENT GOING BACK BY GURNEY TO AMBULANCE GOING TO [facility]. MD AWARE OF DISCHARGE.
== END 2020-02-12 15:50 | disposition short-term general hospital (02) | DRG 349 ==
LOC: ER 21:58 → MED 02-08 00:43
PROVIDERS: ADMIT Nurse Practitioner Acute Care; ATTEND Internal Medicine
DX: T84.54XA Infection and inflammatory reaction due to internal left knee prosthesis, initial encounter (principal); M72.6 Necrotizing fasciitis; A41.9 Sepsis, unspecified organism; M00.062 Staphylococcal arthritis, left knee; E44.0 Moderate protein-calorie malnutrition; M86.18 Other acute osteomyelitis, other site; D68.69 Other thrombophilia; E66.01 Morbid (severe) obesity due to excess calories; N17.9 Acute kidney failure, unspecified; E87.1 Hypo-osmolality and hyponatremia; L03.116 Cellulitis of left lower limb; I10 Essential (primary) hypertension; E87.6 Hypokalemia; D50.9 Iron deficiency anemia, unspecified; Z79.01 Long term (current) use of anticoagulants; D64.9 Anemia, unspecified; R73.9 Hyperglycemia, unspecified; I73.9 Peripheral vascular disease, unspecified; M86.68 Other chronic osteomyelitis, other site; E88.09 Other disorders of plasma-protein metabolism, not elsewhere classified; E86.1 Hypovolemia; Z22.322 Carrier or suspected carrier of Methicillin resistant Staphylococcus aureus; I69.351 Hemiplegia and hemiparesis following cerebral infarction affecting right dominant side; B95.62 Methicillin resistant Staphylococcus aureus infection as the cause of diseases classified elsewhere; Y83.8 Other surgical procedures as the cause of abnormal reaction of the patient, or of later complication, without mention of misadventure at the time of the procedure; Y92.009 Unspecified place in unspecified non-institutional (private) residence as the place of occurrence of the external cause
CPT/HCPCS: 36415; 71045-TC; 73560-TC; 73590-TC; 73700-TC; 80048-TC; 80053-TC; 80061-TC; 80076-TC; 80202-TC; 82533; 82728-TC; 83540-TC; 83605-TC; 83735-TC; 83935-TC; 84100-TC; 84300-TC; 84439-TC; 84443-TC; 84484-TC; 84550-TC; 85025-TC; 85652-TC; 85730-TC; 86140-TC; 87040-TC; 87070-TC; 87081-TC; 93307-TC; 93971-TC; A4349; A6253; A6403; G0378; J1170; J2270; J2405; J2543; J2916; J3370; J3480; J3490; J7030; J7050; J7060; U0002

== ENCOUNTER 2022-02-23 08:00 | Emergency (ER) | payer BC, OTHER ==
[~2022-02-23] VITALS: Ht 185.4 cm; Wt 105.2 kg
[~2022-02-23 08:00] MED LIST: AMLO-213 PO; DULO60CA45 PO; HYDR8TAB2 PO; PANT40TA2 PO; PREG75CA PO
--- NOTE | 2022-02-23 08:02 | NUR ---
AYAKA 89 FROM HOME C/O ABDOMINAL PAIN 08/12, VOMITING AND DIARRHEA STARTED LAST NIGHT AFTER MEAL "I ATE [employer]". IN ROOM AIR AND DENIES SOB. RESPIRATION REGULAR AND UNLABORED. WILL CONTINUE TO MONITOR THE PATIENT.
[2022-02-23] MEDS ORDERED: ONDANSETRON HCL/PF 4 MG/2 ML VIAL ONE (08:25)
[2022-02-23] MEDS ORDERED: MORPHINE SULFATE INJ 4 MG/ML DISP.SYRIN ONE (08:25)
[2022-02-23 08:30] LABS: BASOPHILS # (AUTO) 0.1 K/uL (0.0-0.2); BASOPHILS % (AUTO) 0.6 % (0.0-2.0); HEMATOCRIT 45 % (39-51); HEMOGLOBIN 14.4 g/dL (13.5-17.5); LYMPHOCYTES # (AUTO) 1.4 K/uL (0.8-4.8); LYMPHOCYTES % (AUTO) 11.8 % (20.0-44.0); MEAN CORPUSCULAR HGB CONC 32 g/dl (31.0-36.0); MEAN CORPUSCULAR VOLUME 76 fL (80-96); MONOCYTES # (AUTO) 0.4 K/uL (0.1-1.30); MONOCYTES % (AUTO) 3.3 % (2.0-12.0); NEUTROPHILS # (AUTO) 9.8 K/uL (1.8-8.9); NEUTROPHILS % (AUTO) 84.3 % (43.0-81.0); PLATELET COUNT (AUTO) 264 K/uL (150-450); RED BLOOD CELL COUNT(AUTO) 5.88 MIL/uL (4.5-6.0); WHITE BLOOD COUNT (AUTO) 11.6 K/uL (4.3-11.0)
[2022-02-23] MEDS ORDERED: IV NS 0.9% 1,000 ML BAG IV ONE (08:30)
[2022-02-23] MEDS ORDERED: ONDANSETRON HCL/PF 4 MG/2 ML VIAL IVP ONE (08:30)
[2022-02-23] MEDS ORDERED: MORPHINE SULFATE INJ 2 MG/ML DISP.SYRIN IV ONE (08:30)
[2022-02-23 08:47] LABS: ALBUMIN 4.1 g/dL (3.4-5.0); BILIRUBIN,DIRECT 0.1 mg/dL (0.0-0.2); BILIRUBIN,TOTAL 0.6 mg/dL (0.2-1.0); CALCIUM, SERUM 10.1 mg/dL (8.5-10.1); CREATININE 1.1 mg/dL (0.6-1.3); POTASSIUM 3.1 mmol/L (3.5-5.1); TOTAL PROTEIN, SERUM 7.9 g/dL (6.4-8.2)
--- NOTE | 2022-02-23 09:37 | NUR ---
URINE COLLECTED AND SENT TO LAB
[2022-02-23 09:59] LABS: BILIRUBIN,URINE SMALL (NEGATIVE); COLOR,URINE YELLOW (YELLOW); LEUKOCYTE ESTERASE ,URINE NEGATIVE (NEGATIVE); NITRITE, URINE NEGATIVE (NEGATIVE); PH,URINE 5.5 (5.0-8.0); PROTEIN,URINE 30 mg/dl (NEGATIVE); UGLUCOSE NEGATIVE (NEGATIVE); UROBILINOGEN,URINE 0.2 EU/dL (0.2)
[2022-02-23 10:46] LABS: BACTERIA,URINE Few /HPF (None Seen); SQUAMOUS EPITHELIAL CELL,UR Few /HPF (None Seen); WBC,URINE 0-2 /HPF (0-3)
[2022-02-23] MEDS ORDERED: ONDA8TAB65 PO ×2 (11:30→11:43)
[2022-02-23] MEDS ORDERED: HYDR-4303 PO ×2 (11:30→11:43)
[2022-02-23] MEDS ORDERED: FAMO-131 PO ×2 (11:30→11:43)
[2022-02-23] MEDS ORDERED: HYDROCODONE/APAP 5/325MG TABLET ONE (11:40)
[2022-02-23] MEDS ORDERED: HYDROCODONE/APAP 5/325MG TABLET PO ONE (12:00)
[2022-02-23 14:00] VITALS: BP 129/84
--- NOTE | 2022-02-23 14:00 | NUR ---
IV removed. Catheter intact and site benign. Pressure and 4x4 applied to site. No bleeding noted. Patient discharged to home in stable condition. Written and verbal after care instructions given. Patient verbalizes understanding of instruction.
== END 2022-02-23 14:00 | disposition home or self-care (01) ==
LOC: ER 08:05
DX: R10.84 Generalized abdominal pain (principal); R11.2 Nausea with vomiting, unspecified; R19.7 Diarrhea, unspecified; E87.6 Hypokalemia; I10 Essential (primary) hypertension; F41.9 Anxiety disorder, unspecified; Z87.39 Personal history of other diseases of the musculoskeletal system and connective tissue; Z89.619 Acquired absence of unspecified leg above knee; Z79.899 Other long term (current) drug therapy
CPT/HCPCS: 36415; 74176; 80048; 80076; 81001; 83690; 85025; 96361; 96374; 96375; 99285; J2270; J2405; J7030

== ENCOUNTER 2023-11-11 16:14 | Inpatient (IN) | payer OTHER ==
[~2023-11-11] VITALS: Ht 185.4 cm; Wt 104.0 kg
[~2023-11-11 16:14] MED LIST changes: +FAMO-131 PO; +HYDR-4303 PO; -HYDR8TAB2 PO; +ONDA8TAB65 PO
[2023-11-11] MEDS ORDERED: LORAZEPAM 1 MG TABLET PO ONE (17:00)
[2023-11-11] MEDS ORDERED: LORAZEPAM 1 MG TABLET ONE (17:13)
[2023-11-11 17:28] LABS: BASOPHILS % (AUTO) 0.1 % (0.0-2.0); HEMATOCRIT 49 % (39-51); HEMOGLOBIN 16.3 g/dL (13.5-17.5); LYMPHOCYTES # (AUTO) 1.2 K/uL (0.8-4.8); LYMPHOCYTES % (AUTO) 8.5 % (20.0-44.0); MEAN CORPUSCULAR HEMOGLOBIN 28 PG (26.0-33.0); MEAN CORPUSCULAR HGB CONC 33 g/dl (31.0-36.0); MEAN CORPUSCULAR VOLUME 86 fL (80-96); MONOCYTES # (AUTO) 0.8 K/uL (0.1-1.30); MONOCYTES % (AUTO) 5.9 % (2.0-12.0); NEUTROPHILS # (AUTO) 12.1 K/uL (1.8-8.9); NEUTROPHILS % (AUTO) 85.5 % (43.0-81.0); PLATELET COUNT (AUTO) 182 K/uL (150-450); RED BLOOD CELL COUNT(AUTO) 5.77 MIL/uL (4.5-6.0); RED CELL DISTRIBUTION WIDTH 15.3 % (11.5-15.0); WHITE BLOOD COUNT (AUTO) 14.1 K/uL (4.3-11.0)
[2023-11-11 17:43] LABS: ALANINE AMINOTRANSFERASE 20 U/L (12-78); ALKALINE PHOSPHATASE 117 U/L (46-116); ASPARTATE AMINOTRANSFERASE 27 U/L (15-37); BILIRUBIN,DIRECT 0.1 mg/dL (0.0-0.2); BILIRUBIN,TOTAL 0.4 mg/dL (0.2-1.0); CALCIUM, SERUM 9.7 mg/dL (8.5-10.1); CHLORIDE 95 mmol/L (98-107); GLUCOSE 183 mg/dL (74-106); LIPASE 22 U/L (16-77); POTASSIUM 3.3 mmol/L (3.5-5.1); SODIUM SERUM 133 mmol/L (136-145); TOTAL PROTEIN, SERUM 8.5 g/dL (6.4-8.2); UREA NITROGEN, BLOOD 12 mg/dL (7-18)
[2023-11-11 17:58] LABS: ALBUMIN 3.3 g/dL (3.4-5.0)
[2023-11-11] MEDS ORDERED: ARIP5TAB10 PO (18:26)
[2023-11-11] MEDS ORDERED: PREG150C PO (18:26)
[2023-11-11] MEDS ORDERED: IBUP-1955 PO (18:26)
[2023-11-11] MEDS ORDERED: LISD50CA2 PO (18:26)
[2023-11-11] MEDS ORDERED: ASPI-1169 PO (18:26)
[2023-11-11] MEDS ORDERED: DULO60CA45 PO (18:26)
[2023-11-11 18:49] LABS: LACTIC ACID 3.5 mmol/L (0.4-2.0)
[2023-11-11] MEDS ORDERED: IV NS 0.9% 1,000 ML BAG IV ONE ×2 (19:00)
[2023-11-11] MEDS ORDERED: CEFTRIAXONE 1GM BAG (ER ONLY) 1 GM/50 ML PIGGYBACK IV ONE (19:00)
[2023-11-11] MEDS ORDERED: AZITHROMYCIN 500 MG in IV D5W 250 ML IV ONE (19:00)
[2023-11-11 19:12] LABS: CARBON DIOXIDE 27 mmol/L (21-32)
[2023-11-11 19:34] LABS: INR 0.98 (0.91-1.10); PROTHROMBIN TIME 10.4 SECS (9.2-11.1)
[2023-11-11] MEDS ORDERED: HYDROCODONE/APAP 10/325MG TABLET PO PRN (20:00)
[2023-11-11] MEDS ORDERED: MAG HYDROX/AL HYDROX/SIMETH 30 ML UDC PO PRN (20:00)
[2023-11-11] MEDS ORDERED: Z GUARD REMEDY 4 OZ OINT TP PRN (20:00)
[2023-11-11] MEDS ORDERED: ACETAMINOPHEN 325 MG TABLET PO PRN (20:00)
[2023-11-11] MEDS ORDERED: IBUPROFEN 600 MG TABLET PO PRN (20:00)
[2023-11-11] MEDS ORDERED: DEXTROSE 50%-WATER 50 ML DISP.SYRIN IV PRN (20:00)
[2023-11-11] MEDS ORDERED: TEMAZEPAM 15 MG CAPSULE PO PRN (20:00)
[2023-11-11] MEDS ORDERED: ACETAMINOPHEN ES 500 MG TABLET PO ONE (20:00)
[2023-11-11] MEDS ORDERED: ONDANSETRON HCL/PF 4 MG/2 ML VIAL IVP PRN (20:00)
[2023-11-11] MEDS ORDERED: MAGNESIUM HYDROXIDE 30 ML UDC PO PRN (20:00)
[2023-11-11] MEDS ORDERED: CEFTRIAXONE 2 G in IV D5W 100 ML IV ONE (20:00)
[2023-11-11] MEDS ORDERED: ACETAMINOPHEN ES 500 MG TABLET ONE (20:01)
[2023-11-11] MEDS ORDERED: IPRATROPIUM NEB FS 0.5 MG/2.5 ML AMPUL.NEB NEB PRN (20:30)
[2023-11-11] MEDS ORDERED: ALBUTEROL FS 2.5 MG/3 ML VIAL.NEB NEB PRN (20:30)
[2023-11-11 21:15] VITALS: BP 153/90; TEMP 98.8; O2SAT 96
[2023-11-11 21:30] VITALS: BP 153/90; TEMP 98.8; O2SAT 96
[2023-11-11] MEDS: BLOOD SUGAR DIAGNOSTIC 1 EACH STRIP IN SCH (22:13)
[2023-11-11] MEDS: INSULIN REGULAR, HUMAN 100 UNIT/ML 3 ML VIAL SQ PRN (22:17)
[2023-11-12] MEDS: HYDROCODONE/APAP 5/325MG TABLET PO PRN ×4 (02:14→21:41)
[2023-11-12] MEDS: BLOOD SUGAR DIAGNOSTIC 1 EACH STRIP IN SCH ×4 (06:00→21:36)
[2023-11-12 07:00] VITALS: BP 162/78; TEMP 97.7; O2SAT 94
[2023-11-12 07:31] LABS: BASOPHILS % (AUTO) 0.2 % (0.0-2.0); EOSINOPHILS % (AUTO) 0.1 % (0.0-6.0); HEMATOCRIT 38 % (39-51); HEMOGLOBIN 12.7 g/dL (13.5-17.5); LYMPHOCYTES # (AUTO) 1.4 K/uL (0.8-4.8); LYMPHOCYTES % (AUTO) 14.6 % (20.0-44.0); MEAN CORPUSCULAR HEMOGLOBIN 29 PG (26.0-33.0); MEAN CORPUSCULAR HGB CONC 34 g/dl (31.0-36.0); MEAN CORPUSCULAR VOLUME 84 fL (80-96); MONOCYTES # (AUTO) 0.8 K/uL (0.1-1.30); MONOCYTES % (AUTO) 8.6 % (2.0-12.0); NEUTROPHILS # (AUTO) 7.4 K/uL (1.8-8.9); NEUTROPHILS % (AUTO) 76.5 % (43.0-81.0); PLATELET COUNT (AUTO) 153 K/uL (150-450); RED BLOOD CELL COUNT(AUTO) 4.46 MIL/uL (4.5-6.0); WHITE BLOOD COUNT (AUTO) 9.7 K/uL (4.3-11.0)
[2023-11-12 07:43] LABS: CREATININE 0.7 mg/dL (0.6-1.3); MAGNESIUM 1.8 mg/dL (1.8-2.4); POTASSIUM 3.2 mmol/L (3.5-5.1)
[2023-11-12] MEDS: INSULIN REGULAR, HUMAN 100 UNIT/ML 3 ML VIAL SQ PRN ×3 (07:44→21:40)
[2023-11-12] MEDS ORDERED: VYVANSE 50 MG PO SCH (09:00)
[2023-11-12] MEDS ORDERED: POTASSIUM CHLORIDE 20 MEQ TAB.PRT.SR PO ONE (09:00)
[2023-11-12] MEDS: PANTOPRAZOLE 40 MG TABLET.DR PO SCH (10:26)
[2023-11-12] MEDS: ARIPIPRAZOLE 5 MG TABLET PO SCH (10:26)
[2023-11-12] MEDS: ENOXAPARIN SODIUM 40 MG/0.4 ML DISP.SYRIN SQ SCH (10:26)
[2023-11-12] MEDS: DULOXETINE HCL 30 MG CAPSULE.DR PO SCH (10:27)
[2023-11-12] MEDS: ASPIRIN 81 MG TAB.CHEW PO SCH (10:27)
[2023-11-12] MEDS: PREGABALIN 25 MG CAPSULE PO SCH ×3 (10:27→16:55)
[2023-11-12 16:00] VITALS: BP 188/91; TEMP 97.7; O2SAT 94
[2023-11-12] MEDS ORDERED: NEUTRA PHOS 1 POWD.PACKET PO ONE (16:00)
[2023-11-12] MEDS: hydrALAZINE HCL 25 MG TABLET PO PRN (16:56)
[2023-11-12 20:00] VITALS: BP 163/88; TEMP 98.4; O2SAT 95
[2023-11-12] MEDS ORDERED: CEFTRIAXONE 1 G in IV D5W 50 ML IV SCH (20:00)
[2023-11-12] MEDS ORDERED: AZITHROMYCIN 500 MG in IV D5W 250 ML IV SCH (21:00)
[2023-11-13] MEDS: HYDROCODONE/APAP 5/325MG TABLET PO PRN ×4 (02:08→14:59)
[2023-11-13] MEDS: BLOOD SUGAR DIAGNOSTIC 1 EACH STRIP IN SCH ×2 (06:39→11:28)
[2023-11-13] MEDS: INSULIN REGULAR, HUMAN 100 UNIT/ML 3 ML VIAL SQ PRN ×2 (06:40→11:56)
[2023-11-13 07:00] VITALS: BP 168/88; TEMP 98.8; O2SAT 94
[2023-11-13 07:11] LABS: BASOPHILS % (AUTO) 0.2 % (0.0-2.0); EOSINOPHILS # (AUTO) 0.1 K/uL (0.0-0.7); EOSINOPHILS % (AUTO) 1.1 % (0.0-6.0); HEMATOCRIT 39 % (39-51); LYMPHOCYTES # (AUTO) 1.7 K/uL (0.8-4.8); LYMPHOCYTES % (AUTO) 25.3 % (20.0-44.0); MEAN CORPUSCULAR HEMOGLOBIN 28 PG (26.0-33.0); MEAN CORPUSCULAR HGB CONC 33 g/dl (31.0-36.0); MEAN CORPUSCULAR VOLUME 84 fL (80-96); MONOCYTES # (AUTO) 0.4 K/uL (0.1-1.30); MONOCYTES % (AUTO) 6.3 % (2.0-12.0); NEUTROPHILS # (AUTO) 4.4 K/uL (1.8-8.9); NEUTROPHILS % (AUTO) 67.1 % (43.0-81.0); PLATELET COUNT (AUTO) 166 K/uL (150-450); RED BLOOD CELL COUNT(AUTO) 4.61 MIL/uL (4.5-6.0); RED CELL DISTRIBUTION WIDTH 15.4 % (11.5-15.0); WHITE BLOOD COUNT (AUTO) 6.6 K/uL (4.3-11.0)
[2023-11-13 07:48] LABS: THYROID STIMULATING HORMONE 2.464 uIU/mL (0.358-3.74); URIC ACID 5.4 mg/dL (2.6-7.2)
[2023-11-13 07:50] LABS: CALCIUM, SERUM 8.8 mg/dL (8.5-10.1); CREATININE 0.7 mg/dL (0.6-1.3); MAGNESIUM 1.9 mg/dL (1.8-2.4); PHOSPHORUS 2.6 mg/dL (2.5-4.9); POTASSIUM 3.5 mmol/L (3.5-5.1)
[2023-11-13] MEDS: ENOXAPARIN SODIUM 40 MG/0.4 ML DISP.SYRIN SQ SCH (08:39)
[2023-11-13] MEDS: PREGABALIN 25 MG CAPSULE PO SCH ×2 (08:42→12:52)
[2023-11-13] MEDS: PANTOPRAZOLE 40 MG TABLET.DR PO SCH (08:43)
[2023-11-13] MEDS: ASPIRIN 81 MG TAB.CHEW PO SCH (08:43)
[2023-11-13] MEDS: hydrALAZINE HCL 25 MG TABLET PO PRN ×2 (08:43→14:38)
[2023-11-13] MEDS: DULOXETINE HCL 30 MG CAPSULE.DR PO SCH (08:43)
[2023-11-13] MEDS: ARIPIPRAZOLE 5 MG TABLET PO SCH (08:43)
[2023-11-13] MEDS ORDERED: HYDR-4077 PO (12:47)
[2023-11-13] MEDS ORDERED: AMOX-427 PO (12:47)
[2023-11-13 14:38] VITALS: BP 187/112
== END 2023-11-13 16:15 | disposition home or self-care (01) | DRG 194 ==
LOC: ER 16:19 → MED 20:00
PROVIDERS: ADMIT Nurse Practitioner Acute Care; ATTEND Nurse Practitioner Acute Care
DX: J15.9 Unspecified bacterial pneumonia (principal); D68.59 Other primary thrombophilia; E87.1 Hypo-osmolality and hyponatremia; E87.20 Acidosis, unspecified; E86.1 Hypovolemia; Z74.09 Other reduced mobility; E87.6 Hypokalemia; Z89.612 Acquired absence of left leg above knee; E83.39 Other disorders of phosphorus metabolism; E78.5 Hyperlipidemia, unspecified; G89.4 Chronic pain syndrome; Z79.899 Other long term (current) drug therapy; R73.03 Prediabetes; I73.9 Peripheral vascular disease, unspecified; F41.9 Anxiety disorder, unspecified; R09.02 Hypoxemia; F90.9 Attention-deficit hyperactivity disorder, unspecified type; E66.9 Obesity, unspecified; Z68.30 Body mass index [BMI] 30.0-30.9, adult; K59.00 Constipation, unspecified; Z86.73 Personal history of transient ischemic attack (TIA), and cerebral infarction without residual deficits; Z83.3 Family history of diabetes mellitus; Z79.82 Long term (current) use of aspirin; I10 Essential (primary) hypertension; F32.A Depression, unspecified; M54.9 Dorsalgia, unspecified; D72.829 Elevated white blood cell count, unspecified
CPT/HCPCS: 36415; 71045-TC; 74018; 80048-TC; 80061-TC; 80076-TC; 82962-TC; 83605-TC; 83690-TC; 83735-TC; 84100-TC; 84443-TC; 84484-TC; 84550-TC; 85025-TC; 85730-TC; 87040-TC; A4223; G0378; J0456; J0696; J1650; J1815; J7030; J7060

== ENCOUNTER 2024-04-25 10:18 | Inpatient (IN) | payer MEDICARE, OTHER ==
[~2024-04-25] VITALS: Ht 188 cm; Wt 100.2 kg
[~2024-04-25 10:18] MED LIST changes: -AMLO-213 PO; +AMOX-427 PO; +ARIP5TAB10 PO; +ASPI-1169 PO; -FAMO-131 PO; +HYDR-4077 PO; -HYDR-4303 PO; +IBUP-1955 PO; +LISD50CA2 PO; -ONDA8TAB65 PO; -PANT40TA2 PO; +PREG150C PO; -PREG75CA PO
[2024-04-25] MEDS ORDERED: diphenhydrAMINE HCL 50 MG/ML VIAL ONE (10:46)
[2024-04-25] MEDS ORDERED: ACETAMINOPHEN ES 500 MG TABLET ONE (10:47)
[2024-04-25] MEDS ORDERED: METOCLOPRAMIDE HCL 10 MG/2 ML VIAL ONE (10:47)
[2024-04-25] MEDS: METOCLOPRAMIDE HCL 10 MG/2 ML VIAL IV ONE (10:54)
[2024-04-25] MEDS: IV NS 0.9% 1,000 ML BAG IV ONE (10:54)
[2024-04-25] MEDS: diphenhydrAMINE HCL 50 MG/ML VIAL IV ONE (10:54)
[2024-04-25 10:55] LABS: BASOPHILS % (AUTO) 0.3 % (0.0-2.0); HEMATOCRIT 45 % (39-51); HEMOGLOBIN 15.4 g/dL (13.5-17.5); LYMPHOCYTES # (AUTO) 0.8 K/uL (0.8-4.8); MEAN CORPUSCULAR HEMOGLOBIN 29 PG (26.0-33.0); MEAN CORPUSCULAR HGB CONC 34 g/dl (31.0-36.0); MEAN CORPUSCULAR VOLUME 85 fL (80-96); MONOCYTES # (AUTO) 0.7 K/uL (0.1-1.30); NEUTROPHILS # (AUTO) 13.5 K/uL (1.8-8.9); NEUTROPHILS % (AUTO) 89.7 % (43.0-81.0); PLATELET COUNT (AUTO) 247 K/uL (150-450); RED BLOOD CELL COUNT(AUTO) 5.37 MIL/uL (4.5-6.0); RED CELL DISTRIBUTION WIDTH 14.8 % (11.5-15.0); WHITE BLOOD COUNT (AUTO) 15.1 K/uL (4.3-11.0)
[2024-04-25] MEDS: ACETAMINOPHEN ES 500 MG TABLET PO ONE (10:55)
[2024-04-25 11:15] LABS: CALCIUM, SERUM 9.8 mg/dL (8.5-10.1); CARBON DIOXIDE 27 mmol/L (21-32); CHLORIDE 101 mmol/L (98-107); CREATININE 0.8 mg/dL (0.6-1.3); GLUCOSE 185 mg/dL (74-106); SODIUM SERUM 139 mmol/L (136-145); UREA NITROGEN, BLOOD 10 mg/dL (7-18)
[2024-04-25 11:20] LABS: ALANINE AMINOTRANSFERASE 15 U/L (12-78); ALBUMIN 3.2 g/dL (3.4-5.0); ALKALINE PHOSPHATASE 114 U/L (46-116); ASPARTATE AMINOTRANSFERASE 5 U/L (15-37); BILIRUBIN,DIRECT 0.2 mg/dL (0.0-0.2); BILIRUBIN,TOTAL 0.7 mg/dL (0.2-1.0); LIPASE 20 U/L (16-77); TOTAL PROTEIN, SERUM 7.8 g/dL (6.4-8.2)
[2024-04-25] MEDS ORDERED: POTASSIUM CL. PREMIX PERIPHER. 200 ML ONE (11:32)
[2024-04-25] MEDS: POTASSIUM CL. PREMIX PERIPHER. 50 ML IV SCH (11:40)
[2024-04-25] MEDS ORDERED: KETOROLAC TROMETHAMINE INJ 30 MG/ML VIAL ONE (12:56)
[2024-04-25] MEDS: KETOROLAC TROMETHAMINE INJ 30 MG/ML VIAL IV ONE (13:00)
[2024-04-25] MEDS ORDERED: LORAZEPAM INJ 2 MG/ML VIAL ONE (15:52)
[2024-04-25] MEDS: LORAZEPAM INJ 2 MG/ML VIAL IV ONE (16:00)
[2024-04-25] MEDS ORDERED: CLONIDINE HCL 0.1 MG TABLET ONE (17:53)
[2024-04-25] MEDS: CLONIDINE HCL 0.1 MG TABLET PO ONE (17:59)
[2024-04-25] MEDS ORDERED: LORAZEPAM 1 MG TABLET ONE (22:11)
[2024-04-25] MEDS: LORAZEPAM 1 MG TABLET PO ONE (22:14)
[2024-04-26] VITALS (7 sets, daily range): BP systolic 140–193; BP diastolic 78–96; TEMP 97.3–98.5; O2SAT 96–99
[2024-04-26] MEDS ORDERED: ONDANSETRON HCL/PF 4 MG/2 ML VIAL IVP PRN
[2024-04-26] MEDS ORDERED: MAG HYDROX/AL HYDROX/SIMETH 30 ML UDC PO PRN
[2024-04-26] MEDS ORDERED: Z GUARD REMEDY 4 OZ OINT TP PRN
[2024-04-26] MEDS: ZOLPIDEM TARTRATE 5 MG TABLET PO PRN (00:46)
[2024-04-26] MEDS: hydrALAZINE HCL IV 20 MG VIAL IV PRN (00:46)
[2024-04-26] MEDS: ACETAMINOPHEN 325 MG TABLET PO PRN (00:46)
[2024-04-26] MEDS: ASPIRIN 81 MG TAB.CHEW PO SCH ×2 (03:21→08:13)
[2024-04-26] MEDS: hydrALAZINE HCL 50 MG TABLET PO SCH (05:29)
[2024-04-26] MEDS: ALPRAZOLAM 0.25 MG TABLET PO ONE (06:36)
[2024-04-26 07:48] LABS: BASOPHILS % (AUTO) 0.2 % (0.0-2.0); EOSINOPHILS % (AUTO) 0.2 % (0.0-6.0); HEMATOCRIT 44 % (39-51); HEMOGLOBIN 15.1 g/dL (13.5-17.5); LYMPHOCYTES # (AUTO) 1.7 K/uL (0.8-4.8); MEAN CORPUSCULAR HEMOGLOBIN 29 PG (26.0-33.0); MEAN CORPUSCULAR HGB CONC 34 g/dl (31.0-36.0); MEAN CORPUSCULAR VOLUME 86 fL (80-96); MONOCYTES # (AUTO) 1.1 K/uL (0.1-1.30); MONOCYTES % (AUTO) 7.1 % (2.0-12.0); NEUTROPHILS # (AUTO) 12.7 K/uL (1.8-8.9); NEUTROPHILS % (AUTO) 81.5 % (43.0-81.0); PLATELET COUNT (AUTO) 260 K/uL (150-450); RED BLOOD CELL COUNT(AUTO) 5.16 MIL/uL (4.5-6.0); RED CELL DISTRIBUTION WIDTH 15.3 % (11.5-15.0); WHITE BLOOD COUNT (AUTO) 15.5 K/uL (4.3-11.0)
[2024-04-26 08:10] LABS: CREATININE 0.8 mg/dL (0.6-1.3); MAGNESIUM 1.8 mg/dL (1.8-2.4); PHOSPHORUS 2.5 mg/dL (2.5-4.9)
[2024-04-26] MEDS: DULOXETINE HCL 30 MG CAPSULE.DR PO SCH (08:11)
[2024-04-26] MEDS: PREGABALIN 100 MG CAPSULE PO SCH (08:11)
[2024-04-26] MEDS: PREGABALIN 25 MG CAPSULE PO SCH (08:11)
[2024-04-26] MEDS: PANTOPRAZOLE 40 MG TABLET.DR PO SCH (08:12)
[2024-04-26] MEDS: ARIPIPRAZOLE 5 MG TABLET PO SCH (08:12)
[2024-04-26] MEDS: ENOXAPARIN SODIUM 40 MG/0.4 ML DISP.SYRIN SQ SCH (08:14)
[2024-04-26] MEDS ORDERED: AMOX/CLAVULANATE 500 MG TABLET PO SCH (09:00)
[2024-04-26 10:07] LABS: THYROID STIMULATING HORMONE 1.3 uIU/mL (0.358-3.74)
[2024-04-26] MEDS: IBUPROFEN 600 MG TABLET PO PRN (11:06)
[2024-04-26] MEDS: POTASSIUM CHLORIDE 20 MEQ TAB.PRT.SR PO SCH (11:06)
[2024-04-26] MEDS: POTASSIUM CHLORIDE 20 MEQ TAB.PRT.SR PO ONE (12:23)
[2024-04-26] MEDS: VANCOMYCIN HCL 1.25 GM in IV D5W 250 ML IV SCH (13:38)
[2024-04-26] MEDS: LOSARTAN POTASSIUM 25 MG TABLET PO SCH (14:56)
[2024-04-26] MEDS: LORAZEPAM 1 MG TABLET PO PRN (16:15)
[2024-04-26 21:54] LABS: AMPHETAMINE, URINE NEGATIVE (NEGATIVE); BARBITURATE, URINE NEGATIVE (NEGATIVE); BENZODIAZEPINE, URINE NEGATIVE (NEGATIVE); COCCAINE, URINE NEGATIVE (NEGATIVE); OPIATE, URINE NEGATIVE (NEGATIVE); PHENCYCLIDINE SCREEN,URINE NEGATIVE (NEGATIVE)
[2024-04-26 21:55] LABS: CANNABINOID, URINE POSITIVE (NEGATIVE)
[2024-04-27] VITALS: BP 157/80; TEMP 97.3; O2SAT 98
[2024-04-27 04:00] VITALS: BP 125/85; TEMP 97.1; O2SAT 99
[2024-04-27 06:45] LABS: BASOPHILS # (AUTO) 0.1 K/uL (0.0-0.2); BASOPHILS % (AUTO) 0.6 % (0.0-2.0); EOSINOPHILS # (AUTO) 0.1 K/uL (0.0-0.7); EOSINOPHILS % (AUTO) 0.6 % (0.0-6.0); HEMATOCRIT 44 % (39-51); HEMOGLOBIN 14.8 g/dL (13.5-17.5); LYMPHOCYTES # (AUTO) 1.4 K/uL (0.8-4.8); LYMPHOCYTES % (AUTO) 12.1 % (20.0-44.0); MEAN CORPUSCULAR HEMOGLOBIN 29 PG (26.0-33.0); MEAN CORPUSCULAR HGB CONC 34 g/dl (31.0-36.0); MEAN CORPUSCULAR VOLUME 86 fL (80-96); MONOCYTES # (AUTO) 0.9 K/uL (0.1-1.30); NEUTROPHILS # (AUTO) 8.9 K/uL (1.8-8.9); NEUTROPHILS % (AUTO) 78.7 % (43.0-81.0); PLATELET COUNT (AUTO) 255 K/uL (150-450); WHITE BLOOD COUNT (AUTO) 11.3 K/uL (4.3-11.0)
[2024-04-27 07:08] LABS: THYROID STIMULATING HORMONE 0.7 uIU/mL (0.358-3.74)
[2024-04-27 07:11] LABS: CALCIUM, SERUM 8.5 mg/dL (8.5-10.1); CREATININE 0.8 mg/dL (0.6-1.3); POTASSIUM 3.9 mmol/L (3.5-5.1)
[2024-04-27 08:00] VITALS: BP 155/93; TEMP 98.7; O2SAT 99
[2024-04-27 12:00] VITALS: BP 148/79; TEMP 98.7; O2SAT 99
[2024-04-27] MEDS: CEFEPIME 2 GM in IV D5W 100 ML IV SCH (13:42)
[2024-04-27 16:00] VITALS: BP 154/96; TEMP 98.4; O2SAT 99
[2024-04-27 20:00] VITALS: BP 117/84; TEMP 98.4; O2SAT 96
[2024-04-27] MEDS ORDERED: IOHEXOL-300 100 ML VIAL IV ONE (22:54)
[2024-04-27] MEDS ORDERED: IV NS 0.9% 250 ML IV ONE (22:54)
[2024-04-28] VITALS: BP 154/63; TEMP 98.7; O2SAT 98
[2024-04-28 04:00] VITALS: BP 134/89; TEMP 98.1; O2SAT 99
[2024-04-28 08:00] VITALS: BP 163/76; TEMP 97.7; O2SAT 100
[2024-04-28 08:09] LABS: CORTISOL SERUM 14.1 ug/dL (6.2-19.4)
[2024-04-28 08:39] LABS: CALCIUM, SERUM 9.5 mg/dL (8.5-10.1); POTASSIUM 3.9 mmol/L (3.5-5.1)
[2024-04-28 08:50] LABS: C-REACTIVE PROTEIN 2.79 mg/dL (0.0-0.30)
[2024-04-28 08:52] LABS: LACTIC ACID 0.8 mmol/L (0.4-2.0)
[2024-04-28 12:00] VITALS: BP 128/90; TEMP 97.7; O2SAT 100
[2024-04-28 16:00] VITALS: BP 147/82; TEMP 98.4; O2SAT 98
[2024-04-28 20:00] VITALS: BP 149/81; TEMP 98.4; O2SAT 98
[2024-04-29] VITALS: BP 137/94; TEMP 97.7; O2SAT 97
[2024-04-29 04:00] VITALS: BP 155/82; TEMP 97.7; O2SAT 98
[2024-04-29 07:09] LABS: BASOPHILS # (AUTO) 0.1 K/uL (0.0-0.2); EOSINOPHILS # (AUTO) 0.2 K/uL (0.0-0.7); EOSINOPHILS % (AUTO) 3.5 % (0.0-6.0); HEMATOCRIT 44 % (39-51); HEMOGLOBIN 15.2 g/dL (13.5-17.5); LYMPHOCYTES # (AUTO) 1.2 K/uL (0.8-4.8); LYMPHOCYTES % (AUTO) 19.1 % (20.0-44.0); MEAN CORPUSCULAR HEMOGLOBIN 29 PG (26.0-33.0); MEAN CORPUSCULAR HGB CONC 35 g/dl (31.0-36.0); MEAN CORPUSCULAR VOLUME 85 fL (80-96); MONOCYTES # (AUTO) 0.6 K/uL (0.1-1.30); NEUTROPHILS # (AUTO) 4.2 K/uL (1.8-8.9); NEUTROPHILS % (AUTO) 67.4 % (43.0-81.0); PLATELET COUNT (AUTO) 265 K/uL (150-450); RED BLOOD CELL COUNT(AUTO) 5.18 MIL/uL (4.5-6.0); RED CELL DISTRIBUTION WIDTH 15.2 % (11.5-15.0); WHITE BLOOD COUNT (AUTO) 6.2 K/uL (4.3-11.0)
[2024-04-29 07:36] LABS: CALCIUM, SERUM 9.3 mg/dL (8.5-10.1); MAGNESIUM 2.1 mg/dL (1.8-2.4); PHOSPHORUS 3.5 mg/dL (2.5-4.9); POTASSIUM 3.9 mmol/L (3.5-5.1)
[2024-04-29 08:00] VITALS: BP 161/94; TEMP 97.7; O2SAT 97
[2024-04-29] MEDS: LOSARTAN POTASSIUM 50 MG TABLET PO SCH (08:24)
[2024-04-29] MEDS: MAGNESIUM HYDROXIDE 30 ML UDC PO PRN (12:10)
[2024-04-29 13:23] LABS: APPEARANCE,URINE CLEAR (CLEAR); BILIRUBIN,URINE NEGATIVE (NEGATIVE); BLOOD, URINE NEGATIVE Ery/uL (NEGATIVE); COLOR,URINE YELLOW (YELLOW); KETONES,URINE NEGATIVE (NEGATIVE); LEUKOCYTE ESTERASE ,URINE NEGATIVE (NEGATIVE); NITRITE, URINE NEGATIVE (NEGATIVE); PH,URINE 5.5 (5.0-8.0); PROTEIN,URINE NEGATIVE (NEGATIVE); UGLUCOSE NEGATIVE (NEGATIVE); UROBILINOGEN,URINE 0.2 EU/dL (0.2)
[2024-04-29] MEDS: AMLODIPINE BESYLATE 5 MG TABLET PO SCH (13:31)
[2024-04-29 16:00] VITALS: BP 143/92; TEMP 97.9; O2SAT 99
[2024-04-30] VITALS: BP 151/84; TEMP 98.6; O2SAT 96
[2024-04-30 07:17] LABS: BASOPHILS # (AUTO) 0.1 K/uL (0.0-0.2); BASOPHILS % (AUTO) 0.9 % (0.0-2.0); EOSINOPHILS # (AUTO) 0.2 K/uL (0.0-0.7); EOSINOPHILS % (AUTO) 1.9 % (0.0-6.0); HEMATOCRIT 43 % (39-51); HEMOGLOBIN 14.5 g/dL (13.5-17.5); LYMPHOCYTES # (AUTO) 1.4 K/uL (0.8-4.8); LYMPHOCYTES % (AUTO) 16.3 % (20.0-44.0); MEAN CORPUSCULAR HEMOGLOBIN 29 PG (26.0-33.0); MEAN CORPUSCULAR HGB CONC 34 g/dl (31.0-36.0); MEAN CORPUSCULAR VOLUME 85 fL (80-96); MONOCYTES # (AUTO) 0.6 K/uL (0.1-1.30); NEUTROPHILS # (AUTO) 6.2 K/uL (1.8-8.9); NEUTROPHILS % (AUTO) 73.9 % (43.0-81.0); PLATELET COUNT (AUTO) 265 K/uL (150-450); RED BLOOD CELL COUNT(AUTO) 5.06 MIL/uL (4.5-6.0); RED CELL DISTRIBUTION WIDTH 14.7 % (11.5-15.0); WHITE BLOOD COUNT (AUTO) 8.4 K/uL (4.3-11.0)
[2024-04-30 07:45] LABS: CALCIUM, SERUM 9.4 mg/dL (8.5-10.1); CREATININE 0.7 mg/dL (0.6-1.3); MAGNESIUM 2.2 mg/dL (1.8-2.4); PHOSPHORUS 2.9 mg/dL (2.5-4.9); POTASSIUM 4.1 mmol/L (3.5-5.1)
[2024-04-30 08:00] VITALS: BP 160/84; TEMP 98.4; O2SAT 99
[2024-04-30 12:33] LABS: HIV-1 p24 ANTIGEN NON REACTIVE (NONREACTIVE); HIV-1/2 ANTIBODY NON REACTIVE (NONREACTIVE)
[2024-04-30 16:00] VITALS: BP 155/85; TEMP 98.4; O2SAT 99
[2024-04-30] MEDS ORDERED: LOSA50TA39 PO (16:09)
[2024-04-30] MEDS ORDERED: AMLO-213 PO (16:09)
[2024-04-30] MEDS ORDERED: HYDR-4077 PO (16:09)
[2024-04-30] MEDS ORDERED: ATOR40TA PO (16:09)
[2024-04-30] MEDS ORDERED: LEVO500T90 PO (16:10)
[2024-04-30] MEDS ORDERED: DOXY100C2 PO (16:10)
[2024-04-30] MEDS ORDERED: ALPR0.25 PO (16:19)
[2024-05-01] MEDS ORDERED: AMLODIPINE BESYLATE 10 MG TABLET PO SCH (09:00)
[2024-05-01] MEDS ORDERED: LOSARTAN POTASSIUM 50 MG TABLET PO SCH (09:00)
[2024-05-03 19:06] LABS: ALDOSTERONE,LCMS 2.3 ng/dL (.)
== END 2024-04-30 18:02 | disposition home or self-care (01) | DRG 69 ==
LOC: ER 10:21 → TELE1 22:52 → MEDSG1 04-29 11:11
PROVIDERS: ADMIT Student in an Organized Health Care Education/Training Program; ATTEND Nurse Practitioner Family
DX: G45.9 Transient cerebral ischemic attack, unspecified (principal); L03.211 Cellulitis of face; E44.1 Mild protein-calorie malnutrition; E87.1 Hypo-osmolality and hyponatremia; R65.10 Systemic inflammatory response syndrome (SIRS) of non-infectious origin without acute organ dysfunction; I16.0 Hypertensive urgency; I10 Essential (primary) hypertension; Z86.73 Personal history of transient ischemic attack (TIA), and cerebral infarction without residual deficits; E87.6 Hypokalemia; F39 Unspecified mood [affective] disorder; F41.9 Anxiety disorder, unspecified; Z79.82 Long term (current) use of aspirin; G62.9 Polyneuropathy, unspecified; Z89.612 Acquired absence of left leg above knee; Z91.199 Patient's noncompliance with other medical treatment and regimen due to unspecified reason; Z68.28 Body mass index [BMI] 28.0-28.9, adult; R51.9 Headache, unspecified; R47.81 Slurred speech; H53.8 Other visual disturbances; R29.701 NIHSS score 1
CPT/HCPCS: 36415; 70450-TC; 70487-TC; 71045-TC; 76770-TC; 80048-TC; 80061-TC; 80076-TC; 80202-TC; 82088; 82533; 83605-TC; 83690-TC; 83735-TC; 84100-TC; 84244; 84443-TC; 84484-TC; 85025-TC; 85652-TC; 86140-TC; 87040-TC; 87086-TC; 87806; 93307-TC; 93880-TC; 97110-TC; 97530-TC; 97535-TC; A4223; G0378; J0360; J0692; J1200; J1650; J1885; J2060; J2765; J3480; J7040; J7050; J7060; J7120; Q9967

== ENCOUNTER 2025-03-27 01:29 | Inpatient (IN) | payer MEDICARE, MEDICAID, OTHER ==
[~2025-03-27] VITALS: Ht 188 cm; Wt 107.5 kg
[~2025-03-27 01:29] MED LIST changes: +ALPR0.25 PO; +AMLO-213 PO; -AMOX-427 PO; +ATOR40TA PO; +DOXY100C2 PO; -IBUP-1955 PO; +LEVO500T90 PO; +LOSA50TA39 PO; -PREG150C PO
[2025-03-27] MEDS ORDERED: ONDANSETRON HCL/PF 4 MG/2 ML VIAL ONE ×2 (02:44→08:01)
[2025-03-27] MEDS ORDERED: MORPHINE SULFATE INJ 2 MG/ML DISP.SYRIN ONE (02:44)
[2025-03-27 02:47] LABS: BASOPHILS # (AUTO) 0.1 K/uL (0.0-0.2); BASOPHILS % (AUTO) 0.5 % (0.0-2.0); EOSINOPHILS # (AUTO) 0.1 K/uL (0.0-0.7); EOSINOPHILS % (AUTO) 0.5 % (0.0-6.0); HEMATOCRIT 47 % (39-51); HEMOGLOBIN 16.1 g/dL (13.5-17.5); LYMPHOCYTES # (AUTO) 1.3 K/uL (0.8-4.8); LYMPHOCYTES % (AUTO) 11.3 % (20.0-44.0); MEAN CORPUSCULAR HEMOGLOBIN 29 PG (26.0-33.0); MEAN CORPUSCULAR HGB CONC 34 g/dl (31.0-36.0); MEAN CORPUSCULAR VOLUME 86 fL (80-96); MONOCYTES # (AUTO) 0.6 K/uL (0.1-1.30); MONOCYTES % (AUTO) 4.9 % (2.0-12.0); NEUTROPHILS # (AUTO) 9.5 K/uL (1.8-8.9); NEUTROPHILS % (AUTO) 82.8 % (43.0-81.0); PLATELET COUNT (AUTO) 269 K/uL (150-450); RED BLOOD CELL COUNT(AUTO) 5.54 MIL/uL (4.5-6.0); WHITE BLOOD COUNT (AUTO) 11.5 K/uL (4.3-11.0)
[2025-03-27] MEDS: MORPHINE SULFATE INJ 2 MG/ML DISP.SYRIN IV ONE (02:49)
[2025-03-27] MEDS: ONDANSETRON HCL/PF - ER 4 MG/2 ML VIAL IV ONE (02:49)
[2025-03-27 02:55] LABS: CALCIUM, SERUM 9.4 mg/dL (8.5-10.1); CREATININE 0.6 mg/dL (0.6-1.3)
[2025-03-27 02:57] LABS: POTASSIUM 2.8 mmol/L (3.5-5.1)
[2025-03-27 03:10] LABS: ALBUMIN 3.9 g/dL (3.4-5.0); BILIRUBIN,TOTAL 0.9 mg/dL (0.2-1.0)
[2025-03-27 03:11] LABS: TOTAL PROTEIN, SERUM 7.8 g/dL (6.4-8.2)
[2025-03-27] MEDS ORDERED: IV NS 0.9% 250 ML IV ONE (03:25)
[2025-03-27] MEDS ORDERED: CT SWABBABLE VALVE TRANS SET 1 EA INFUS.SET MC ONE (03:25)
[2025-03-27] MEDS ORDERED: IOHEXOL-350 100 ML VIAL IV ONE (03:25)
[2025-03-27] MEDS ORDERED: POTASSIUM CL. PREMIX PERIPHER. 50 ML ONE ×2 (03:43→04:42)
[2025-03-27] MEDS: POTASSIUM CL. PREMIX PERIPHER. 50 ML IV SCH (04:03)
[2025-03-27] MEDS ORDERED: CLONIDINE HCL 0.1 MG TABLET ONE (05:06)
[2025-03-27] MEDS: CLONIDINE HCL 0.1 MG TABLET PO ONE (05:12)
[2025-03-27 05:55] LABS: APPEARANCE,URINE CLEAR (CLEAR); BILIRUBIN,URINE NEGATIVE (NEGATIVE); BLOOD, URINE TRACE-INTA Ery/uL (NEGATIVE); COLOR,URINE YELLOW (YELLOW); KETONES,URINE 2+ mg/dL (NEGATIVE); LEUKOCYTE ESTERASE ,URINE NEGATIVE (NEGATIVE); NITRITE, URINE NEGATIVE (NEGATIVE); PROTEIN,URINE 2+ mg/dl (NEGATIVE); UGLUCOSE NEGATIVE (NEGATIVE); UROBILINOGEN,URINE 0.2 EU/dL (0.2)
[2025-03-27] MEDS ORDERED: hydrALAZINE HCL IV 20 MG VIAL ONE ×2 (05:55→07:24)
[2025-03-27] MEDS: hydrALAZINE HCL IV 20 MG VIAL IV ONE (06:04)
[2025-03-27 06:10] LABS: AMPHETAMINE, URINE NEGATIVE (NEGATIVE); BARBITURATE, URINE NEGATIVE (NEGATIVE); BENZODIAZEPINE, URINE NEGATIVE (NEGATIVE); COCCAINE, URINE NEGATIVE (NEGATIVE); OPIATE, URINE NEGATIVE (NEGATIVE); PHENCYCLIDINE SCREEN,URINE NEGATIVE (NEGATIVE)
[2025-03-27 06:12] LABS: CANNABINOID, URINE POSITIVE (NEGATIVE)
[2025-03-27 06:25] LABS: ADD URINE CULTURE YES; BACTERIA,URINE Moderate /HPF (None Seen); SQUAMOUS EPITHELIAL CELL,UR Few /HPF (None Seen)
[2025-03-27] MEDS ORDERED: ENOXAPARIN SODIUM 40 MG/0.4 ML DISP.SYRIN SQ SCH (06:30)
[2025-03-27] MEDS ORDERED: Z GUARD REMEDY 4 OZ OINT TP PRN (06:30)
[2025-03-27] MEDS ORDERED: MAG HYDROX/AL HYDROX/SIMETH 30 ML UDC PO PRN (06:30)
[2025-03-27] MEDS ORDERED: MAGNESIUM HYDROXIDE 30 ML UDC PO PRN (06:30)
[2025-03-27] MEDS ORDERED: ZOLPIDEM TARTRATE 5 MG TABLET PO PRN (06:30)
[2025-03-27] MEDS: hydrALAZINE HCL IV 20 MG VIAL IV PRN (07:29)
[2025-03-27] MEDS ORDERED: DEXTROSE 50%-WATER 50 ML DISP.SYRIN IV PRN (08:00)
[2025-03-27] MEDS ORDERED: ASPIRIN EC 81 MG TABLET.DR PO SCH (08:00)
[2025-03-27] MEDS: ONDANSETRON HCL/PF 4 MG/2 ML VIAL IVP PRN (08:05)
[2025-03-27] MEDS ORDERED: MORPHINE SULFATE INJ 4 MG/ML DISP.SYRIN ONE (08:17)
[2025-03-27] MEDS: MORPHINE SULFATE INJ 4 MG/ML DISP.SYRIN IV PRN (08:21)
[2025-03-27] MEDS ORDERED: LOSA1TAB36 PO (09:19)
[2025-03-27] MEDS ORDERED: ALPR0.255 PO (09:19)
[2025-03-27] MEDS: PANTOPRAZOLE 40 MG TABLET.DR PO SCH (09:38)
[2025-03-27] MEDS: ENOXAPARIN SODIUM 40 MG/0.4 ML DISP.SYRIN SQ SCH (09:39)
[2025-03-27] MEDS: NITROGLYCERIN PACKET 1 GM PACKET TOP ONE (09:45)
[2025-03-27] MEDS: POTASSIUM CHLORIDE 20 MEQ TAB.PRT.SR PO SCH ×2 (09:51→10:57)
[2025-03-27] MEDS: AMLODIPINE BESYLATE 10 MG TABLET PO SCH (09:51)
[2025-03-27 09:52] LABS: CREATININE 0.7 mg/dL (0.6-1.3); MAGNESIUM 1.9 mg/dL (1.8-2.4)
[2025-03-27 10:03] LABS: POTASSIUM 2.8 mmol/L (3.5-5.1)
[2025-03-27] MEDS: ARIPIPRAZOLE 5 MG TABLET PO SCH (10:56)
[2025-03-27] MEDS: ASPIRIN 81 MG TAB.CHEW PO SCH (10:56)
[2025-03-27 11:04] LABS: THYROID STIMULATING HORMONE 1.03 uIU/mL (0.358-3.74)
[2025-03-27 12:00] VITALS: BP 132/63; TEMP 98.2; O2SAT 97
[2025-03-27] MEDS: BLOOD SUGAR DIAGNOSTIC 1 EACH STRIP IN SCH (12:56)
[2025-03-27] MEDS: METOPROLOL TARTRATE 50 MG TABLET PO SCH (12:58)
[2025-03-27] MEDS: INSULIN REGULAR, HUMAN 100 UNIT/ML 3 ML VIAL SQ PRN (12:59)
[2025-03-27 16:00] VITALS: BP 142/64; TEMP 98.2; O2SAT 94
[2025-03-27] MEDS: ATORVASTATIN 40 MG TABLET PO SCH (17:50)
[2025-03-27 20:00] VITALS: BP 138/81; TEMP 98.1; O2SAT 95
[2025-03-28] VITALS (8 sets, daily range): BP systolic 140–177; BP diastolic 67–92; TEMP 97.9–98.9; O2SAT 94–97
[2025-03-28 06:58] LABS: BASOPHILS % (AUTO) 0.4 % (0.0-2.0); EOSINOPHILS # (AUTO) 0.1 K/uL (0.0-0.7); EOSINOPHILS % (AUTO) 0.6 % (0.0-6.0); HEMATOCRIT 45 % (39-51); HEMOGLOBIN 15.3 g/dL (13.5-17.5); LYMPHOCYTES # (AUTO) 1.8 K/uL (0.8-4.8); LYMPHOCYTES % (AUTO) 15.5 % (20.0-44.0); MEAN CORPUSCULAR HEMOGLOBIN 29 PG (26.0-33.0); MEAN CORPUSCULAR HGB CONC 34 g/dl (31.0-36.0); MEAN CORPUSCULAR VOLUME 86 fL (80-96); MONOCYTES # (AUTO) 0.8 K/uL (0.1-1.30); MONOCYTES % (AUTO) 7.1 % (2.0-12.0); NEUTROPHILS # (AUTO) 9.1 K/uL (1.8-8.9); NEUTROPHILS % (AUTO) 76.4 % (43.0-81.0); PLATELET COUNT (AUTO) 278 K/uL (150-450); RED BLOOD CELL COUNT(AUTO) 5.23 MIL/uL (4.5-6.0); WHITE BLOOD COUNT (AUTO) 11.9 K/uL (4.3-11.0)
[2025-03-28 07:01] LABS: CALCIUM, SERUM 9.6 mg/dL (8.5-10.1); CREATININE 0.7 mg/dL (0.6-1.3); MAGNESIUM 2.1 mg/dL (1.8-2.4); POTASSIUM 3.5 mmol/L (3.5-5.1)
[2025-03-28 07:22] LABS: THYROID STIMULATING HORMONE 0.98 uIU/mL (0.358-3.74)
[2025-03-28] MEDS: AZITHROMYCIN 500 MG in IV D5W 250 ML IV SCH (08:50)
[2025-03-28] MEDS: NEUTRA PHOS 1 POWD.PACKET PO SCH (10:24)
[2025-03-28] MEDS: POTASSIUM CHLORIDE 20 MEQ TAB.PRT.SR PO SCH (10:24)
[2025-03-28] MEDS: VALSARTAN 80 MG TABLET PO SCH (10:40)
[2025-03-28] MEDS: CEFTRIAXONE 1 G in IV D5W 50 ML IV SCH (10:45)
[2025-03-28] MEDS: METOPROLOL TARTRATE 50 MG TABLET PO ONE (14:58)
[2025-03-28] MEDS: ACETAMINOPHEN 325 MG TABLET PO PRN (15:44)
[2025-03-28] MEDS ORDERED: IOHEXOL-350 100 ML VIAL IV ONE (15:57)
[2025-03-28] MEDS ORDERED: IV NS 0.9% 250 ML IV ONE (15:57)
[2025-03-28] MEDS ORDERED: METOPROLOL TARTRATE INJ 5 MG/5 ML AMPUL ONE (16:19)
[2025-03-28] MEDS ORDERED: NITROGLYCERIN 0.4 MG/TAB BOTTLE ONE (16:19)
[2025-03-28] MEDS: METOPROLOL TARTRATE INJ 5 MG/5 ML AMPUL IVP PRN (16:20)
[2025-03-28] MEDS: NITROGLYCERIN 0.4 MG/TAB BOTTLE SL ONE (16:36)
[2025-03-29 04:00] VITALS: BP 146/79; TEMP 98.2; O2SAT 97
[2025-03-29 07:15] LABS: BASOPHILS % (AUTO) 0.5 % (0.0-2.0); EOSINOPHILS # (AUTO) 0.1 K/uL (0.0-0.7); HEMATOCRIT 47 % (39-51); HEMOGLOBIN 15.7 g/dL (13.5-17.5); LYMPHOCYTES # (AUTO) 1.6 K/uL (0.8-4.8); LYMPHOCYTES % (AUTO) 16.4 % (20.0-44.0); MEAN CORPUSCULAR HEMOGLOBIN 29 PG (26.0-33.0); MEAN CORPUSCULAR HGB CONC 34 g/dl (31.0-36.0); MEAN CORPUSCULAR VOLUME 87 fL (80-96); MONOCYTES # (AUTO) 0.7 K/uL (0.1-1.30); MONOCYTES % (AUTO) 7.2 % (2.0-12.0); NEUTROPHILS # (AUTO) 7.5 K/uL (1.8-8.9); NEUTROPHILS % (AUTO) 74.9 % (43.0-81.0); PLATELET COUNT (AUTO) 249 K/uL (150-450); RED BLOOD CELL COUNT(AUTO) 5.35 MIL/uL (4.5-6.0); RED CELL DISTRIBUTION WIDTH 14.9 % (11.5-15.0)
[2025-03-29 07:45] LABS: CALCIUM, SERUM 8.5 mg/dL (8.5-10.1); CREATININE 0.7 mg/dL (0.6-1.3); POTASSIUM 3.4 mmol/L (3.5-5.1)
[2025-03-29 08:00] VITALS: BP 170/80; TEMP 98.4; O2SAT 99
[2025-03-29] MEDS: CEFTRIAXONE 1 G in IV D5W 50 ML IV SCH (08:58)
[2025-03-29] MEDS: POTASSIUM CHLORIDE 20 MEQ TAB.PRT.SR PO SCH (09:48)
[2025-03-29] MEDS: hydrALAZINE HCL 50 MG TABLET PO SCH (09:51)
[2025-03-29] MEDS: AZITHROMYCIN 500 MG in IV D5W 250 ML IV SCH (10:16)
[2025-03-29 10:36] VITALS: BP 168/82; TEMP 98.5; O2SAT 98
[2025-03-29] MEDS ORDERED: Aspirin Ec PO (11:04)
[2025-03-29] MEDS ORDERED: METO50TA16 PO (11:04)
[2025-03-29] MEDS: ALPRAZOLAM 0.25 MG TABLET PO ONE (11:04)
[2025-03-29] MEDS: MUPIROCIN OINT 2% 22 GM TUBE TP SCH (11:07)
[2025-03-29 12:44] VITALS: BP 150/70; TEMP 98.5; O2SAT 96
== END 2025-03-29 12:48 | disposition home health service (06) | DRG 302 ==
LOC: ER 01:48 → TELE1 06:39 → MEDSG1 03-28 10:00
PROVIDERS: ATTEND Nurse Practitioner Family
DX: I25.10 Atherosclerotic heart disease of native coronary artery without angina pectoris (principal); J15.9 Unspecified bacterial pneumonia; N39.0 Urinary tract infection, site not specified; B96.89 Other specified bacterial agents as the cause of diseases classified elsewhere; E87.6 Hypokalemia; E66.9 Obesity, unspecified; E78.5 Hyperlipidemia, unspecified; F41.9 Anxiety disorder, unspecified; I10 Essential (primary) hypertension; Z86.73 Personal history of transient ischemic attack (TIA), and cerebral infarction without residual deficits; D72.829 Elevated white blood cell count, unspecified; F12.10 Cannabis abuse, uncomplicated; Z68.30 Body mass index [BMI] 30.0-30.9, adult; N62 Hypertrophy of breast; E11.51 Type 2 diabetes mellitus with diabetic peripheral angiopathy without gangrene; Z89.612 Acquired absence of left leg above knee; Z87.01 Personal history of pneumonia (recurrent); Z79.82 Long term (current) use of aspirin; S80.811A Abrasion, right lower leg, initial encounter; X58.XXXA Exposure to other specified factors, initial encounter; Y93.9 Activity, unspecified; Y92.009 Unspecified place in unspecified non-institutional (private) residence as the place of occurrence of the external cause
CPT/HCPCS: 36415; 71045-TC; 75574; 76700-TC; 80048-TC; 80053-TC; 80061-TC; 81001; 82962-TC; 83735-TC; 83880; 84100-TC; 84439-TC; 84443-TC; 84484-TC; 85025-TC; 87040-TC; 87086-TC; 93307-TC; A4223; G0378; J0360; J0456; J0696; J1650; J1815; J2270; J2405; J3480; J3490; J7030; J7050; J7060; Q9967